=== PATIENT | male | born 1940 | race Caucasian/White ===

== ENCOUNTER 2018-10-29 00:35 | Inpatient (IN) | payer BC ==
[~2018-10-29] VITALS: Ht 167.6 cm; Wt 78.2 kg
[2018-10-29] MEDS ORDERED: SOD CHLORIDE 0.9% 1,000 ML IV STA (01:32)
--- NOTE | 2018-10-29 02:44 | ERD ---
ER Documentation Chief Complaint Chief Complaint CLAUDIA RA102 from home,bloody stool X3 days,gen weakness,dizziness,HAILE HPI 78-year-old man brought in by EMS from home for dizziness and near syncopal episode tonight while walking up the stairs. He states he has had mild dizziness times 3 days and developed melena as well as bright red blood per rectum. Patient has a history of mild gastritis and in the past has had bleeding hemorrhoids. He denies fevers or chills, no chest pain or shortness of breath, no loss of consciousness. Patient was transported here by EMS without further complications. ROS All systems reviewed and are negative except as per history of present illness. Allergies Allergies: Coded Allergies: No Known Allergy (Unverified , 10/29/18) PMhx/Soc Hemorrhoids, hypothyroidism Hx Alcohol Use: No Hx Substance Use: No Hx Tobacco Use: No Smoking Status: Never smoker FmHx Family History: No diabetes Physical Exam Vitals Vital Signs Date Temp Pulse Resp B/P (MAP) Pulse Ox O2 O2 Flow FiO2 Time Delivery Rate 10/29/18 84 18 106/59 97 Room Air 01:30 (75) 10/29/18 128/61 01:09 (83) 10/29/18 98.0 70 18 114/55 97 00:40 (74) Physical Exam GENERAL: Well-developed, well-nourished, appears dehydrated, afebrile HEENT: Dry mucous membranes, pink conjunctiva, no cervical spine tenderness or step-off deformities, no goiter, no jaundice or icterus, extraocular movements intact without pain. No submandibular induration, and no pharyngeal erythema NEURO: Alert and oriented 3, cranial nerves II through XII intact bilaterally, pupils equal round reactive to light, no focal deficits or facial asymmetry, sensation intact distally Strength 5/5 in upper and lower extremities bilaterally CARDIAC: Regular rate and rhythm, no murmurs rubs or gallops LUNGS: Clear bilaterally no wheezing crackles or stridor ABDOMEN: Soft nontender, no guarding, no rigidity, no rebound, no psoas sign no obturator sign. Normoactive bowel sounds SKIN: Warm and dry to touch, no abrasions, contusions, or hematomas, no lacerations, no ecchymosis, no target lesions, and without ulcers EXTREMITIES: No clubbing cyanosis or edema, calves are bilaterally symmetrical, no Homans sign, no popliteal cord sign. Distal pulses equal and bilateral PSYCH: Normal affect without agitation or irritability Result Diagram: 10/29/1811410/29/18114 Results 24 hrs Laboratory Tests Test 10/29/18 01:15 10/29/18 02:45 White Blood Count 10.5 10^3/ul Red Blood Count 3.56 10^6/ul Hemoglobin 11.1 g/dl Hematocrit 33.5 % Mean Corpuscular Volume 94.1 fl Mean Corpuscular Hemoglobin 31.2 pg Mean Corpuscular Hemoglobin Concent 33.1 g/dl Red Cell Distribution Width 12.3 % Platelet Count 189 10^3/UL Mean Platelet Volume 10.6 fl Immature Granulocytes % 0.800 % Neutrophils % 65.8 % Lymphocytes % 19.4 % Monocytes % 12.0 % Eosinophils % 1.7 % Basophils % 0.3 % Nucleated Red Blood Cells % 0.0 /100WBC Immature Granulocytes # 0.080 10^3/ul Neutrophils # 6.9 10^3/ul Lymphocytes # 2.0 10^3/ul Monocytes # 1.3 10^3/ul Eosinophils # 0.2 10^3/ul Basophils # 0.0 10^3/ul Nucleated Red Blood Cells # 0.0 10^3/ul Prothrombin Time 13.1 Sec Prothrombin Time Ratio 1.0 INR International Normalized Ratio 0.98 Activated Partial Thromboplast Time 24.0 Sec Sodium Level 136 mmol/L Potassium Level 4.3 mmol/L Chloride Level 102 mmol/L Carbon Dioxide Level 28 mmol/L Anion Gap 6 Blood Urea Nitrogen 44 mg/dl Creatinine 0.97 mg/dl Est Glomerular Filtrat Rate mL/min mL/min Glucose Level 161 mg/dl Calcium Level 9.9 mg/dl Total Bilirubin 0.1 mg/dl Direct Bilirubin 0.00 mg/dl Indirect Bilirubin 0.1 mg/dl Aspartate Amino Transf (AST/SGOT) 23 IU/L Alanine Aminotransferase (ALT/SGPT) 23 IU/L Alkaline Phosphatase 60 IU/L Troponin I < 0.012 ng/ml Total Protein 5.5 g/dl Albumin 3.3 g/dl Globulin 2.20 g/dl Albumin/Globulin Ratio 1.50 Lipase 55 U/L Urine Color YELLOW Urine Clarity CLEAR Urine pH 5.0 Urine Specific [place] 1.023 Urine Ketones NEGATIVE mg/dL Urine Nitrite NEGATIVE mg/dL Urine Bilirubin NEGATIVE mg/dL Urine Urobilinogen NEGATIVE mg/dL Urine Leukocyte Esterase NEGATIVE Adria/ul Urine Hemoglobin NEGATIVE mg/dL Urine Glucose NEGATIVE mg/dL Urine Total Protein NEGATIVE mg/dl Current Medications Medications Dose Sig/Bridgette Start Time Status Last (Trade) Ordered Route PRN Stop Time Admin Dose Reason Admin Sodium 1,000 ml @ Q1H STAT 10/29/18 DC 10/29/18 Chloride 1,000 mls/hr IV 01:32 01:43 10/29/18 02:31 40 mg ONCE ONCE 10/29/18 DC 10/29/18 Pantoprazole IV 03:00 03:24 (Protonix 10/29/18 03:01 Iv) Procedures/MDM IV line was established patient was placed on security monitor rhythm strip revealed a sinus rhythm at about 80 bpm with upright P and T waves. Patient was afebrile EKG performed, read by me revealed a normal sinus rhythm 83 bpm, normal axis, narrow QRS complex, no concerning ST elevations or depressions noted. CT scan of the abdomen and pelvis was performed, IMPRESSION: 1. Punctate nonobstructing right upper pole renal calculus. 2. Right lower pole renal cortical cyst. 3. Diffuse flaccidity of the ventral abdominal wall without evidence for hernia. 4. Extensive colonic diverticulosis. 5. No CT evidence for appendicitis. 6. Mildly enlarged heterogeneous prostate. 7. Vascular calcifications. CBC reveals mild anemia with a hemoglobin of 11, electrolytes revealed dehydration with a BUN/creatinine 44/1, liver function tests were normal, troponin was negative. Urinalysis was negative for infection. I administered 1 L normal saline IV for dehydration and Protonix 40 mg IV x1 for possible upper gastrointestinal bleeding. Patient will be admitted to [facility] for continued medical management and GI consultation for possible upper endoscopy. Departure Diagnosis: Primary Impression: Melena Additional Impressions: Upper GI bleed Dizziness Dehydration Condition: DORY Orantes MD Oct 29, 2018 02:44
[2018-10-29] MEDS ORDERED: PANTOPRAZOLE 40 MG INJ IV ONE (03:00)
--- NOTE | 2018-10-29 04:38 | HP ---
Date/Time of Note Date/Time of Note DATE: 10/29/18 TIME: 04:38 Assessment/Plan VTE Prophylaxis SCD applied (from Nsg): Yes Pharmacological prophylaxis: NA/contraindicated Pharm contraindication: bleeding Lines/Catheters IV Catheter Type (from Nrsg): Saline Lock Assessment/Plan Hospital Course This is a 78-year-old male being admitted to the [facility] floor for: #1 acute GI bleed: Suspect upper GI bleed given the fact the patient had melanotic stools. Clear liquid diet at the current time, CBC every 6 hours. Protonix IV, consult GI for endoscopy/colonoscopy. Given patient's cardiac his tory goal is to maintain hemoglobin above 8. #2 coronary artery disease: History of cardiac stent that required restenting after possible thrombosis we will need to hold aspirin at the current time, will need to confirm patient's home medications and initiate as indicated #3 hypertension: We will need to confirm patient's home medications and initiate as indicated #4 hypothyroidism: We will check a TSH, again we will need to confirm patient's levothyroxine dose #5 hyperlipidemia: Check lipid panel, resume statin as indicated #6 obstructive sleep apnea: Patient states that he has a CPAP setting of 7 he will try to bring his own CPAP machine from home otherwise we will use hours #7 DVT GI prophylaxis: SCDs, no GI prophylaxis indicated Further treatment strategy will be implemented as per the clinical course. Result Diagram: 10/29/1811410/29/18114 Results 24hrs Laboratory Tests Test 10/29/18 01:15 10/29/18 02:45 White Blood Count 10.5 Red Blood Count 3.56 L Hemoglobin 11.1 L Hematocrit 33.5 L Mean Corpuscular Volume 94.1 Mean Corpuscular Hemoglobin 31.2 Mean Corpuscular Hemoglobin Concent 33.1 Red Cell Distribution Width 12.3 Platelet Count 189 Mean Platelet Volume 10.6 H Immature Granulocytes % 0.800 H Neutrophils % 65.8 Lymphocytes % 19.4 Monocytes % 12.0 H Eosinophils % 1.7 Basophils % 0.3 Nucleated Red Blood Cells % 0.0 Immature Granulocytes # 0.080 H Neutrophils # 6.9 Lymphocytes # 2.0 Monocytes # 1.3 H Eosinophils # 0.2 Basophils # 0.0 Nucleated Red Blood Cells # 0.0 Prothrombin Time 13.1 Prothrombin Time Ratio 1.0 INR International Normalized Ratio 0.98 Activated Partial Thromboplast Time 24.0 Sodium Level 136 Potassium Level 4.3 Chloride Level 102 Carbon Dioxide Level 28 Anion Gap 6 Blood Urea Nitrogen 44 H Creatinine 0.97 Est Glomerular Filtrat Rate mL/min Glucose Level 161 Calcium Level 9.9 Total Bilirubin 0.1 L Direct Bilirubin 0.00 Indirect Bilirubin 0.1 Aspartate Amino Transf (AST/SGOT) 23 Alanine Aminotransferase (ALT/SGPT) 23 Alkaline Phosphatase 60 Troponin I < 0.012 Total Protein 5.5 L Albumin 3.3 Globulin 2.20 Albumin/Globulin Ratio 1.50 Lipase 55 Urine Color YELLOW Urine Clarity CLEAR Urine pH 5.0 Urine Specific [place] 1.023 Urine Ketones NEGATIVE Urine Nitrite NEGATIVE Urine Bilirubin NEGATIVE Urine Urobilinogen NEGATIVE Urine Leukocyte Esterase NEGATIVE Urine Hemoglobin NEGATIVE Urine Glucose NEGATIVE Urine Total Protein NEGATIVE HPI/ROS Admit Date/Time Admit Date/Time Hx of Present Illness Chief complaint: Dizziness, dark stools This is a 78-year-old man brought in by EMS from home for dizziness, fatigue, and near syncopal episode tonight while walking up the stairs. He states he has had mild dizziness for 5 days and developed dark stools over the last 3 days. He reports that he had 2 BMs per day that were dark over the last 3 days. Patient apparently has a history of gastritis in the past and also a polyp that was found on colonoscopy in 2016. He denies fevers or chills, no chest pain or shortness of breath, no loss of consciousness. Patient was transported here by EMS without further complications. Allergies: NKDA Medications: See Nov Const: As per HPI Eyes : No pain discharge or redness or change in visual acuity ENT: No pain, sore throat, congestion, congestion, dysphagia or discharge Respiratory: No shortness of breath, cough, sputum, wheezing, or pleuritic pain Cardiovascular: No chest pain, palpitation, PND, or edema GI : As per HPI Genitourinary: No dysuria, hematuria, flank pain , discharge or CVA tenderness Musculoskeletal: No joint pain, back pain, neck pain, restricted range of motion in neck or joints Skin: No rash, bruising or hives Neuro: As per HPI Endocrine: No polyuria, polydipsia, temperature intolerance Psych: No hallucination, depression, anxiety or suicidal ideation PMH/Family/Social Past Medical History Coronary artery disease, hypertension, hyperlipidemia, hypothyroid, obstructive sleep apnea with CPAP setting of 7, history of possible hemorrhoids, polyp Coded Allergies: No Known Allergy (Unverified , 10/29/18) Past Surgical History Cardiac stenting x2 (restenting), colonoscopy in 2016 colon - polyp Family History Significant Family History: no pertinent family hx Social History 1 Glass of wine drinker daily Smoking Status: Never smoker Drug Use: none Exam/Review of Systems Vital Signs Vitals Vital Signs Date Temp Pulse Resp B/P (MAP) Pulse Ox O2 O2 Flow FiO2 Time Delivery Rate 10/29/18 84 18 106/59 97 Room Air 01:30 (75) 10/29/18 98.0 00:40 Exam Exam General: Patient is a pleasant male currently lying in bed in no acute distress HEENT: Atraumatic, normocephalic. The pupils are equal, round and reactive. Extraocular motor are intact Neck: Supple with full range of motion. No rigidity or meningismus Chest: Nontender Lungs: Clear to auscultation bilaterally no crackles rales or wheezing Heart: Normal S1-S2, Regular rhythm and rate. No murmur, S3, or S4 Abdomen: Soft , nontender, nondistended , bowel sounds are present. No guarding no rebound tenderness , No masses or organomegaly. No costovertebral temporal an gle mass Extremities: Normal to inspection, no edema no cyanosis Neurologic: Normal mental status, speech normal, cranial nerves II through XII are intact, motor and sensory are intact, gait not assessed secondary to weakness Additional Comments EKG normal sinus rhythm 83 bpm, normal axis, narrow QRS complex, no concerning ST elevations or depressions noted. PROCEDURE: CT ABDOMEN/PELVIS WITHOUT CONTRAST CLINICAL INDICATION: 78-year-old male with abdominal pain. TECHNIQUE: The study was performed utilizing a [employer] VCT 64-slice CT scanner. Direct axial sections were obtained through the abdomen and pelvis without the use of intravenous contrast material. Sagittal and coronal reformations were obtained. One or more of the following dose reduction techniques were utilized: automated exposure control, adjustment of the mA and/or kV according to patient's size, use of iterative reconstruction technique. DICOM images are available. The images were reviewed on a PACS workstation. CTD/vol = 10.91 mGy; Total Exam DLP = 617.16 mGy.cm. COMPARISON: None. FINDINGS: There is minimal bilateral basilar subsegmental atelectasis and/or scarring. There is trace dependent pericardial effusion. There is no evidence for significant pleural effusion. The liver has a normal size and contour without focal areas of abnormal density. No intrahepatic nor extrahepatic biliary ductal dilatation is seen. The gallbladder demonstrates no wall thickening nor pericholecystic fluid. No biliary stones are evident. The pancreas is without areas of abnormal attenuation. The spleen is identified and has a normal size without abnormal density. The adrenal glands are unremarkable. There is a punctate nonobstructing right upper pole renal calculus. There is a right lower pole renal cortical cyst measuring approximately 2.1 x 1.8 x 1.9 cm. The left ki dney is without abnormal density, calculi or obstruction.. The urinary bladder contains urine. There is diffuse flaccidity of the ventral abdominal wall without evidence for kate hernia. There are extensive diverticula identified throughout the colon without surrounding inflammatory changes. The appendix is visualized and is without abnormal thickening or surrounding inflammatory reaction. The prostate is mildly enlarged and heterogeneous measuring approximately 4.4 x 4.3 x 4.9 cm with central calcifications. There is no significant free fluid. The aortoiliac vessels are diffusely calcified but without aneurysmal dilatation. The osseous structures are intact. IMPRESSION: 1. Punctate nonobstructing right upper pole renal calculus. 2. Right lower pole renal cortical cyst. 3. Diffuse flaccidity of the ventral abdominal wall without evidence for hernia. 4. Extensive colonic diverticulosis. 5. No CT evidence for appendicitis. 6. Mildly enlarged heterogeneous prostate. 7. Vascular calcifications. .Jesse Hughes MD, Date Time Electronically viewed and signed by .Jesse Hughes MD, on 10/29/2018 02:22 .M/ CC: DORY ROCHA MD [id number] JOE LIRA Oct 29, 2018 04:38
[2018-10-29 05:00] VITALS: BP 108/55; PULSE 90; RESP 18
[2018-10-29] MEDS ORDERED: ONDANSETRON 4 MG INJ IV PRN (05:00)
[2018-10-29] MEDS ORDERED: NACL 0.9% 3 ML SYG IV SCH (05:00)
[2018-10-29] MEDS ORDERED: ACETAMINOPHEN 325 MG TAB PO PRN (05:00)
[2018-10-29] MEDS ORDERED: morphine 2 MG INJ IV PRN (05:00)
[2018-10-29] MEDS: SOD CHLORIDE 0.9% 1,000 ML IV SCH ×2 (05:17→17:33)
[2018-10-29 05:29] VITALS: Ht 167.6 cm; Wt 78.2 kg
--- NOTE | 2018-10-29 05:48 | NUR ---
RECEIVED PT FROM ER,ALERT AND ORIENTED. VS STABLE. DENIES PAIN. ORIENTED TO ROOM SET UP,CALL LIGHT WITHIN REACH. SEEN BY DR. LIRA. MAY HAVE CLEAR LIQUIDS. STARTED ON IVF. NO BOWEL MOVEMENT AT THIS TIME. REQUESTED FOR COPY OF ADVANCE DIRECTIVE. AT BEDSIDE. NEEDS ATTENDED.
[2018-10-29] MEDS ORDERED: PANTOPRAZOLE 40 MG INJ IV SCH (06:00)
[2018-10-29 07:21] VITALS: BP 113/60; PULSE 80; RESP 18
[2018-10-29] MEDS ORDERED: ASPI-535 PO (09:22)
[2018-10-29] MEDS ORDERED: CAND4TAB3 PO (09:24)
[2018-10-29] MEDS ORDERED: PSYL0.4C2 PO (09:29)
[2018-10-29] MEDS ORDERED: ROSU10TA26 PO (09:31)
[2018-10-29] MEDS ORDERED: OMEG-135 PO (09:36)
[2018-10-29] MEDS ORDERED: LEVO25TA PO (10:26)
[2018-10-29] MEDS ORDERED: PEG/ELECTROLYTES 4L BTL PO ONE (14:00)
[2018-10-29 14:15] VITALS: BP 137/63; PULSE 87; RESP 18
--- NOTE | 2018-10-29 14:37 | CONS ---
DATE OF ADMISSION: 10/29/2018 DATE OF CONSULTATION: TYPE OF CONSULTATION: Gastroenterology. Dear Dr. Lira: Thank you for asking me to see Mr. Hawkins in GI consultation. HISTORY OF PRESENT ILLNESS: The patient, as you know, is a 78-year-old white gentleman has been feel ing dizzy and because of that, he came to the hospital. He was found to have anemia and he is also p ast history of melenic stool. He does takes aspirin everyday. He has coronary stents. No nausea, n o vomiting, no heartburn, no abdominal pain, no rectal bleeding. REVIEW OF SYSTEMS: Positive for coronary artery disease, hypertension, hypothyroidism, dyslipidemia, sleep apnea. MEDICATIONS PRIOR TO THE ADMISSION: Essentially as mentioned above. He has been takin. Aspirin. 2. Fish oil. 3. Levothyroxine. PHYSICAL EXAMINATION: GENERAL: The patient is a 78-year-old white gentleman who at this time is alert, is well built. VITAL SIGNS: He is afebrile. CARDIOVASCULAR: Normal heart sounds. RESPIRATORY: Normal breath sounds. ABDOMEN: Shows soft abdomen with no palpable masses, no tenderness, no distention. LABORATORY WORKUP: Potassium is 4.3. Bilirubin 0.1, AST 23, ALT 23, alkaline phosphatase is 60. Li pase is 55. TSH is 0.874. Prothrombin time 13.1. WBC count dropped to 8.5 from 11.1. DIAGNOSTIC DATA: The CAT scan of the abdomen shows evidence of severe diverticulosis and kidney cyst s and also stone in the right upper pole. Right lower pole renal cortical cyst is noted as well. En larged prostate. CLINICAL IMPRESSION: The patient is presenting with history of dizziness, probably secondary to anem ia. He has history of coronary artery disease. Anyway from the anemia standpoint, one should rule o ut the possibility of peptic ulcer disease and gastritis. He has history of colon polyps detected co lonoscopically few years ago, rule out recurrence of colon polyps, rule out colon cancer. PLAN: At this time, I recommend upper endoscopy as well as lower endoscopy. Once again, doctor, thank you for this consultation. Dictated By: GIO NEWELL/HI Conf#: [id number] DID#: [id number] CC: JOE LIRA MD;*[facility]*
--- NOTE | 2018-10-29 15:32 | PN ---
Date/Time of Note Date/Time of Note DATE: 10/29/18 TIME: 15:29 Assessment/Plan VTE Prophylaxis Risk score (from Ns)>0 risk: 4 SCD applied (from Ns): Yes Pharmacological prophylaxis: NA/contraindicated Pharm contraindication: bleeding Lines/Catheters IV C[facility]ter Type (from [facility]): Peripheral IV Assessment/Plan Hospital Course SUBJECTIVE: Denies any dizziness. OBJECTIVE: Physical Exam General: Adequately build 78 year-old male lying in bed in no apparent distress. HEENT: Normocephalic, atraumatic. Eyes: Anicteric sclerae, conjunctivae clear. ENT: Nasal septum midline, oral mucosa moist. Neck supple. Respiratory: Bilaterally clear breath sounds. No use of accessory muscles of respiration. No adventitious breath sounds. Cardiovascular: S1, S2 heard. Abdomen: Soft, nontender, and nondistended. Bowel sounds positive in all 4 quadrants. Genitourinary: Deferred. Extremities: No cyanosis, no clubbing, no edema. Peripheral pulses palpable. Neurologic: Cranial nerves II through XII grossly intact. The patient is awake, alert, and oriented. Skin: Normal skin turgor. No skin rashes. Labs & Vitals per chart ASSESSMENT & PLAN 78-year-old male with comorbidities including CAD, Status post coronary artery stenting, hypertension, hypothyroidism, hyperlipidemia, and obstructive sleep apnea, who came to the emergency room with chief complaint of dizziness as well as melena. The patient was admitted to inpatient setting for further treatment and evaluation. 1. Melena. -Probably secondary to upper gastrointestinal bleeding. -Continue PPI. -Obtain serial H&H. -Transfuse blood products as needed. -Gastroenterology following. -Hold aspirin. 2. Normocytic, normochromic anemia. -Probably anemia of acute blood loss. -Management as per #1. 3. CAD. -Continue cardiac medications except aspirin. 4. Essential hypertension. -Continue antihypertensives. 5. Dyslipidemia. -Continue antilipemics. 6. Hypothyroidism -Continue Synthroid. 7. Obstructive sleep apnea. -Continue home CPAP. 8. Fluids, electrolytes, and nutrition. -Clear liquid diet. 9. DVT prophylaxis. -Bilateral SCDs. 10. Plan. -Continue PPI. -Await upper and lower endoscopy scheduled on 10/30/2018. The patient was seen in collaboration with Dr. Reynolds. Result Diagram: 10/29/18 1111 10/29/18 0115 Results 24hrs Laboratory Tests Test 10/29/18 01:15 10/29/18 02:45 10/29/18 05:21 10/29/18 11:11 White Blood Count 10.5 9.8 7.2 # Red Blood Count 3.56 L 3.26 L 2.77 L Hemoglobin 11.1 L 10.0 L 8.5 L Hematocrit 33.5 L 30.4 L 25.9 L Mean Corpuscular 94.1 93.3 93.5 Volume Mean Corpuscular 31.2 30.7 30.7 Hemoglobin Mean Corpuscular 33.1 32.9 32.8 Hemoglobin Concent Red Cell 12.3 12.3 12.2 Distribution Width Platelet Count 189 161 135 L Mean Platelet Volume 10.6 H 10.4 9.4 Immature 0.800 H 0.700 H 0.600 H Granulocytes % Neutrophils % 65.8 79.0 H 69.2 Lymphocytes % 19.4 10.7 L 15.4 Monocytes % 12.0 H 8.9 13.7 H Eosinophils % 1.7 0.4 1.0 Basophils % 0.3 0.3 0.1 Nucleated Red Blood 0.0 0.0 0.0 Cells % Immature 0.080 H 0.070 H 0.040 H Granulocytes # Neutrophils # 6.9 7.7 H 5.0 Lymphocytes # 2.0 1.0 1.1 Monocytes # 1.3 H 0.9 1.0 H Eosinophils # 0.2 0.0 0.1 Basophils # 0.0 0.0 0.0 Nucleated Red Blood 0.0 0.0 0.0 Cells # Prothrombin Time 13.1 Prothrombin Time 1.0 Ratio INR International 0.98 Normalized Ratio Activated 24.0 Partial Thromboplast Time Sodium Level 136 Potassium Level 4.3 Chloride Level 102 Carbon Dioxide Level 28 Anion Gap 6 Blood Urea Nitrogen 44 H Creatinine 0.97 Est Glomerular Filtrat Rate mL/min Glucose Level 161 Calcium Level 9.9 Total Bilirubin 0.1 L Direct Bilirubin 0.00 Indirect Bilirubin 0.1 Aspartate Amino 23 Transf (AST/SGOT) Alanine 23 Aminotransferase (AL T/SGPT) Alkaline Phosphatase 60 Troponin I < 0.012 Total Protein 5.5 L Albumin 3.3 Globulin 2.20 Albumin/Globulin 1.50 Ratio Lipase 55 Urine Color YELLOW Urine Clarity CLEAR Urine pH 5.0 Urine Specific 1.023 [place] Urine Ketones NEGATIVE Urine Nitrite NEGATIVE Urine Bilirubin NEGATIVE Urine Urobilinogen NEGATIVE Urine Leukocyte NEGATIVE Esterase Urine Hemoglobin NEGATIVE Urine Glucose NEGATIVE Urine Total Protein NEGATIVE Hemoglobin A1c 5.9 Triglycerides Level 137 Cholesterol Level 96 L LDL Cholesterol, 42 Calculated HDL Cholesterol 27 L Cholesterol/HDL 3.5 Ratio Thyroid Stimulating 0.874 Hormone (TSH) Exam/Review of Systems Exam Vitals Vital Signs Date Temp Pulse Resp B/P (MAP) Pulse Ox O2 O2 Flow FiO2 Time Delivery Rate 10/29/18 98.4 80 18 113/60 96 Room Air 07:21 (77) Results Results 24hrs Laboratory Tests Test 10/29/18 01:15 10/29/18 02:45 10/29/18 05:21 10/29/18 11:11 White Blood Count 10.5 9.8 7.2 # Red Blood Count 3.56 L 3.26 L 2.77 L Hemoglobin 11.1 L 10.0 L 8.5 L Hematocrit 33.5 L 30.4 L 25.9 L Mean Corpuscular 94.1 93.3 93.5 Volume Mean Corpuscular 31.2 30.7 30.7 Hemoglobin Mean Corpuscular 33.1 32.9 32.8 Hemoglobin Concent Red Cell 12.3 12.3 12.2 Distribution Width Platelet Count 189 161 135 L Mean Platelet Volume 10.6 H 10.4 9.4 Immature 0.800 H 0.700 H 0.600 H Granulocytes % Neutrophils % 65.8 79.0 H 69.2 Lymphocytes % 19.4 10.7 L 15.4 Monocytes % 12.0 H 8.9 13.7 H Eosinophils % 1.7 0.4 1.0 Basophils % 0.3 0.3 0.1 Nucleated Red Blood 0.0 0.0 0.0 Cells % Immature 0.080 H 0.070 H 0.040 H Granulocytes # Neutrophils # 6.9 7.7 H 5.0 Lymphocytes # 2.0 1.0 1.1 Monocytes # 1.3 H 0.9 1.0 H Eosinophils # 0.2 0.0 0.1 Basophils # 0.0 0.0 0.0 Nucleated Red Blood 0.0 0.0 0.0 Cells # Prothrombin Time 13.1 Prothrombin Time 1.0 Ratio INR International 0.98 Normalized Ratio Activated 24.0 Partial Thromboplast Time Sodium Level 136 Potassium Level 4.3 Chloride Level 102 Carbon Dioxide Level 28 Anion Gap 6 Blood Urea Nitrogen 44 H Creatinine 0.97 Est Glomerular Filtrat Rate mL/min Glucose Level 161 Calcium Level 9.9 Total Bilirubin 0.1 L Direct Bilirubin 0.00 Indirect Bilirubin 0.1 Aspartate Amino 23 Transf (AST/SGOT) Alanine 23 Aminotransferase (AL T/SGPT) Alkaline Phosphatase 60 Troponin I < 0.012 Total Protein 5.5 L Albumin 3.3 Globulin 2.20 Albumin/Globulin 1.50 Ratio Lipase 55 Urine Color YELLOW Urine Clarity CLEAR Urine pH 5.0 Urine Specific 1.023 [place] Urine Ketones NEGATIVE Urine Nitrite NEGATIVE Urine Bilirubin NEGATIVE Urine Urobilinogen NEGATIVE Urine Leukocyte NEGATIVE Esterase Urine Hemoglobin NEGATIVE Urine Glucose NEGATIVE Urine Total Protein NEGATIVE Hemoglobin A1c 5.9 Triglycerides Level 137 Cholesterol Level 96 L LDL Cholesterol, 42 Calculated HDL Cholesterol 27 L Cholesterol/HDL 3.5 Ratio Thyroid Stimulating 0.874 Hormone (TSH) Medications Medication Current Medications Sodium Chloride 1,000 ml @ 80 mls/hr [id number] IV Last administered on 10/29/18at 05:17; Admin Dose 80 MLS/HR; Start 10/29/18 at 04:35 IV Flush (NS 3 ml) 3 ml PER PROTOCOL IV ; Start 10/29/18 at 05:00 Ondansetron HCl (Zofran Inj) 4 mg Q6H PRN IV NAUSEA/VOMITING; Start 10/29/18 at 05:00 Acetaminophen (Tylenol Tab) 650 mg Q6H PRN PO .PAIN 1-3 OR TEMP; Start 10/29/18 at 05:00 Morphine Sulfate (morphine) 2 mg Q4H PRN IV .SEVERE PAIN 7-10; Start 10/29/18 at 05:00 Pantoprazole (Protonix Iv) 40 mg BID@06,18 IV ; Start 10/29/18 at 18:00 Levothyroxine Sodium (Synthroid) 150 mcg BEFORE BREAKFAST PO ; Start 10/30/18 at 07:00 Losartan Potassium (Cozaar) 25 mg DAILY PO ; Start 10/30/18 at 09:00 Fish Oil (Fish Oil) 1 mg DAILY PO ; Start 10/30/18 at 09:00 Atorvastatin Calcium (Lipitor) 40 mg DAILY PO ; Start 10/30/18 at 09:00 GRIFFIN VIDES NP Oct 29, 2018 15:32
[2018-10-29 15:33] VITALS: BP 125/60; PULSE 89; RESP 18
[2018-10-29 15:34] VITALS: BP 114/58; PULSE 99
[2018-10-29] MEDS: PANTOPRAZOLE 40 MG INJ IV SCH (18:07)
[2018-10-29] MEDS ORDERED: SOD CHLORIDE 0.9% 250 ML IV* ONE (18:09)
--- NOTE | 2018-10-29 18:59 | NUR ---
End of shift summary: Patient in stable condition .V.S within normal limits .Patient on colon preoperation .s/p Golytely .Monitoring H&H .Next lab at 0000 .Will endorse to next shift RN to follow up on lab results .Possible Blood transfusion tonight if Hemoglobin 8 or less.Full report will be given to next shift RN .Call light within reach ,bed alarm on , at bedside
[2018-10-29 20:54] VITALS: BP 94/42; PULSE 106; RESP 18
[2018-10-30] VITALS (41 sets, daily range): BP systolic 23–151; BP diastolic 50–78; PULSE 90–105; RESP 18–27
--- NOTE | 2018-10-30 00:05 | NUR ---
STARTED BLOOD TRANSFUSION, 1 UNIT PRBC.
--- NOTE | 2018-10-30 04:45 | NUR ---
STARTED TRANSFUSION OF SECOND BAG OF PRBC. PATIENT TOLERATED FIRST BAG WELL.
[2018-10-30] MEDS: SOD CHLORIDE 0.9% 1,000 ML IV SCH (05:35)
[2018-10-30] MEDS: PANTOPRAZOLE 40 MG INJ IV SCH ×2 (06:21→18:00)
--- NOTE | 2018-10-30 06:47 | NUR ---
PATIENT STILL ON 2ND BAG OF PRBC (2 OF 2). PATIENT TOLERATING TRANSFUSION WELL. PATIENT CONTINUES TO HAVE BLOODY STOOL. CONTINUE POC. PLANNED COLONOSCOPY AND EGD FOR TODAY.
[2018-10-30] MEDS ORDERED: LEVOTHYROXINE 150 MCG TAB PO SCH (07:00)
[2018-10-30] MEDS ORDERED: FISH OIL 1,000 MG CAP PO SCH (09:00)
[2018-10-30] MEDS ORDERED: LOSARTAN 25 MG TAB PO SCH (09:00)
[2018-10-30] MEDS ORDERED: ATORVASTATIN 40 MG TAB PO SCH (09:00)
--- NOTE | 2018-10-30 14:52 | NUR ---
Received call from lab for hemoglobin 6.6. 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 MD Bella made aware, received order for 1 unit PRBC and 20mg IV Lasix after transfusion. Will carry out order
[2018-10-30] MEDS ORDERED: FUROSEMIDE 20 MG INJ IV ONE (15:00)
--- NOTE | 2018-10-30 16:45 | NUR ---
Pt off floor to GI lab via wheelchair. Pt went down with blood still running. VS sheet in chart for RN to fill out VS Q1HR, pt accompanied by family. Pt alert, oriented x4 upon transport.
--- NOTE | 2018-10-30 17:30 | PN ---
Date/Time of Note Date/Time of Note DATE: 10/30/18 TIME: 17:29 Assessment/Plan VTE [place]axis [place] [facility] [place]: 3 [place]CD [place] [facility] [place] Yes SCD contraindicated: low risk/ambulating Pharmacological prophylaxis: NA/contraindicated Pharm contraindication: bleeding Lines/Catheters IV [facility]ter Type (from [facility]): Peripheral IV Assessment/Plan Hospital Course Assessment and plan 1. Presyncope/dizziness/symptomatic GI bleed, stable, transfuse as indicated. 2. Acute GI bleed, stable, patient for endoscopy today 3. Chronic coronary disease/PCI status. Unfortunately need to hold aspirin Plavix due to #2. 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 Hypertension 5. Dyslipidemia 6. ESTEFANI Subjective: Events noted. Objective: Vital signs stable Physical exam Deferred patient in GI lab. Result Diagram: 10/30/18 1356 10/30/18 1356 Results 24hrs Laboratory Tests Test 10/29/18 22:53 10/30/18 07:30 10/30/18 10:42 10/30/18 13:56 White Blood Count 9.7 # 10.0 Red Blood Count 2.16 #L 2.26 L Hemoglobin 6.9 *L 7.3 L 6.6 *L Hematocrit 20.3 L 22.0 L 20.1 L Mean Corpuscular 94.0 88.9 Volume Mean Corpuscular 31.9 29.2 Hemoglobin Mean Corpuscular 34.0 32.8 Hemoglobin Concen t Red Cell 12.5 17.0 #H Distribution Width Platelet Count 126 L 124 L Mean Platelet 10.4 10.2 Volume Immature 0.800 H 1.500 H Granulocytes % Neutrophils % 76.3 Segmented 77 Neutrophils % (Manual) Band Neutrophils % (Manual) Lymphocytes % 9.2 L Lymphocytes % 12 L (Manual) Monocytes % 12.5 H Monocytes % 10 (Manual) Eosinophils % 0.3 Eosinophils % 0 (Manual) Basophils % 0.2 Basophils % 0.2 (Manual) Nucleated Red 0.0 0.0 Blood Cells % Immature 0.080 H 0.150 H Granulocytes # Neutrophils # 7.4 7.6 H Neutrophils # (Manual) Band Neutrophils # Lymphocytes 1.1 (Manual) Lymphocytes # 1.2 0.9 Monocytes # 0.9 1.3 H Monocytes # 0.9 (Manual) Eosinophils # 0.0 0.0 Basophils # 0.0 0.0 Basophils # 0.0 (Manual) Nucleated Red 0.0 Blood Cells # Lab Scanned BLOOD TRANSFUSIO Report N Sodium Level 136 Potassium Level 3.9 Chloride Level 106 Carbon Dioxide 28 Level Anion Gap 2 L Blood Urea 17 # Nitrogen Creatinine 0.71 Est Glomerular Filtrat Rate mL/min Glucose Level 129 Calcium Level 8.2 L Phosphorus Level 1.8 L Magnesium Level 1.7 Total Bilirubin 0.4 Direct Bilirubin 0.00 Indirect 0.4 Bilirubin Aspartate Amino 19 Transf (AST/SGOT) Alanine 27 Aminotransferase (ALT/SGPT) Alkaline 31 L Phosphatase Total Protein 4.1 #L Albumin 2.3 #L Globulin 1.80 Albumin/Globulin 1.27 Ratio Exam/Review of Systems Exam Vitals Vital Signs Date Temp Pulse Resp B/P (MAP) Pulse Ox O2 O2 Flow FiO2 Time Delivery Rate 10/30/18 98.2 94 20 119/59 97 14:14 (79) 10/29/18 Room Air 14:15 Intake and Output 10/29/18 10/29/18 10/30/18 1414:59 22:59 06:59 IntakeIntake Total 1200 ml 4750 ml 800 ml OutputOutput Total 400 ml BalanceBalance 1200 ml 4350 ml 800 ml Results Results 24hrs Laboratory Tests Test 10/29/18 22:53 10/30/18 07:30 10/30/18 10:42 10/30/18 13:56 White Blood Count 9.7 # 10.0 Red Blood Count 2.16 #L 2.26 L Hemoglobin 6.9 *L 7.3 L 6.6 *L Hematocrit 20.3 L 22.0 L 20.1 L Mean Corpuscular 94.0 88.9 Volume Mean Corpuscular 31.9 29.2 Hemoglobin Mean Corpuscular 34.0 32.8 Hemoglobin Concen t Red Cell 12.5 17.0 #H Distribution Width Platelet Count 126 L 124 L Mean Platelet 10.4 10.2 Volume Immature 0.800 H 1.500 H Granulocytes % Neutrophils % 76.3 Segmented 77 Neutrophils % (Manual) Band Neutrophils % (Manual) Lymphocytes % 9.2 L Lymphocytes % 12 L (Manual) Monocytes % 12.5 H Monocytes % 10 (Manual) Eosinophils % 0.3 Eosinophils % 0 (Manual) Basophils % 0.2 Basophils % 0.2 (Manual) Nucleated Red 0.0 0.0 Blood Cells % Immature 0.080 H 0.150 H Granulocytes # Neutrophils # 7.4 7.6 H Neutrophils # (Manual) Band Neutrophils # Lymphocytes 1.1 (Manual) Lymphocytes # 1.2 0.9 Monocytes # 0.9 1.3 H Monocytes # 0.9 (Manual) Eosinophils # 0.0 0.0 Basophils # 0.0 0.0 Basophils # 0.0 (Manual) Nucleated Red 0.0 Blood Cells # Lab Scanned BLOOD TRANSFUSIO Report N Sodium Level 136 Potassium Level 3.9 Chloride Level 106 Carbon Dioxide 28 Level Anion Gap 2 L Blood Urea 17 # Nitrogen Creatinine 0.71 Est Glomerular Filtrat Rate mL/min Glucose Level 129 Calcium Level 8.2 L Phosphorus Level 1.8 L Magnesium Level 1.7 Total Bilirubin 0.4 Direct Bilirubin 0.00 Indirect 0.4 Bilirubin Aspartate Amino 19 Transf (AST/SGOT) Alanine 27 Aminotransferase (ALT/SGPT) Alkaline 31 L Phosphatase Total Protein 4.1 #L Albumin 2.3 #L Globulin 1.80 Albumin/Globulin 1.27 Ratio Medications Medication Current Medications Sodium Chloride 1,000 ml @ 80 mls/hr [id number] IV Last administered on 10/29/18at 17:33; Admin Dose 80 MLS/HR; Start 10/29/18 at 04:35 IV Flush (NS 3 ml) 3 ml PER PROTOCOL IV ; Start 10/29/18 at 05:00 Ondansetron HCl (Zofran Inj) 4 mg Q6H PRN IV NAUSEA/VOMITING; Start 10/29/18 at 05:00 Acetaminophen (Tylenol Tab) 650 mg Q6H PRN PO .PAIN 1-3 OR TEMP; Start 10/29/18 at 05:00 Morphine Sulfate (morphine) 2 mg Q4H PRN IV .SEVERE PAIN 7-10; Start 10/29/18 at 05:00 Pantoprazole (Protonix Iv) 40 mg BID@06,18 IV Last administered on 10/30/18at 06:21; Admin Dose 40 MG; Start 10/29/18 at 18:00 Levothyroxine Sodium (Synthroid) 150 mcg BEFORE BREAKFAST PO Last administered on 10/30/18at 06:16; Admin Dose 150 MCG; Start 10/30/18 at 07:00 Losartan Potassium (Cozaar) 25 mg DAILY PO ; Start 10/30/18 at 09:00 Fish Oil (Fish Oil) 1 mg DAILY PO ; Start 10/30/18 at 09:00 Atorvastatin Calcium (Lipitor) 40 mg DAILY PO ; Start 10/30/18 at 09:00 DELL OVALLE MD Oct 30, 2018 17:30
--- NOTE | 2018-10-30 17:57 | PREAC ---
Date/Time of Note Date/Time of Note DATE: 10/30/18 TIME: 17:53 Anesthesia Eval and Record Evaluation Time Pre-Procedure Interview DATE: 10/30/18 TIME: 17:53 Age 78 Sex male NPO: 8 hrs Preoperative diagnosis GI Bleeding Planned procedure EGD, Colonoscopy Past Medical History Past Medical History: Includes Cardio: Dyslipidemia, CAD Endo: Hypothyroid Heme: Anemia Surgery & Anesthesia Issues No known issue Meds Anticoagulation: No Beta Eulogio within 24 hr: No Reason Beta Eulogio not given: Pt. not on B-Eulogio Reported Medications Levothyroxine Sodium* (Synthroid*) 25 Mcg Tablet, 0.15 MG PO BEFORE BREAKFAST, #30 TAB 10/29/18 Stanley-3 Fatty Acids/Fish Oil (Fish Oil 1,000 mg Capsule) 1 Each Capsule, 1 EACH PO DAILY, CAP 10/29/18 Rosuvastatin Calcium (Rosuvastatin Calcium) 10 Mg Tablet, 10 MG PO DAILY, TAB 10/29/18 Candesartan Cilexetil (Candesartan Cilexetil) 4 Mg Tablet, 4 MG PO DAILY, TAB 10/29/18 Aspirin Ec (Aspir 81) 81 Mg Tablet.dr, 81 MG PO DAILY, #30 TAB 10/29/18 Current Medications Sodium Chloride 1,000 ml @ 80 mls/hr [id number] IV Last administered on 10/29/18at 17:33; Admin Dose 80 MLS/HR; Start 10/29/18 at 04:35 IV Flush (NS 3 ml) 3 ml PER PROTOCOL IV ; Start 10/29/18 at 05:00 Ondansetron HCl (Zofran Inj) 4 mg Q6H PRN IV NAUSEA/VOMITING; Start 10/29/18 at 05:00 Acetaminophen (Tylenol Tab) 650 mg Q6H PRN PO .PAIN 1-3 OR TEMP; Start 10/29/18 at 05:00 Morphine Sulfate (morphine) 2 mg Q4H PRN IV .SEVERE PAIN 7-10; Start 10/29/18 at 05:00 Pantoprazole (Protonix Iv) 40 mg BID@06,18 IV Last administered on 10/30/18at 06:21; Admin Dose 40 MG; Start 10/29/18 at 18:00 Levothyroxine Sodium (Synthroid) 150 mcg BEFORE BREAKFAST PO Last administered on 10/30/18at 06:16; Admin Dose 150 MCG; Start 10/30/18 at 07:00 Losartan Potassium (Cozaar) 25 mg DAILY PO ; Start 10/30/18 at 09:00 Fish Oil (Fish Oil) 1 mg DAILY PO ; Start 10/30/18 at 09:00 Atorvastatin Calcium (Lipitor) 40 mg DAILY PO ; Start 10/30/18 at 09:00 Meds reviewed: Yes Allergies Coded Allergies: No Known Allergy (Unverified , 10/29/18) Allergies Reviewed: Yes Labs/Studies Labs Reviewed: Reviewed by anesthesiologist Result Diagram: 10/30/18 1356 10/30/18 1356 Laboratory Tests 10/30/18 13:56 test: N/A Studies: ECG (N/A), CXR (N/A) Pre-procedure Exam Last vitals Vital Signs Date Temp Pulse Resp B/P (MAP) Pulse Ox O2 O2 Flow FiO2 Time Delivery Rate 10/30/18 98.2 94 20 119/59 97 14:14 (79) 10/29/18 Room Air 14:15 Airway: Adequate mouth opening, Adequate thyromental dist Mallampati: Mallampati II Teeth: Normal Lung: Normal Heart: Normal ASA Physical Status ASA physical status: 3 Emergency: None Planned Anesthetic General/MAC: MAC Planned Pain Management Parenteral pain med Pre-operative Attestations Prior to commencing anesthesia and surgery, the patient was re-evaluated, there was verification of: *The patient's identity *The results of appropriate recent lab work and preoperative vital signs *The above evaluation not changing prior to induction *Anesthetic plan, risk benefits, alternative and complications discussed with patient/family; questions answered; patient/family understands, accepts and wishes to proceed. SONIA LUA MD Oct 30, 2018 17:57
[2018-10-30] MEDS ORDERED: PROPOFOL 60 ML ONE (18:24)
--- NOTE | 2018-10-30 18:28 | PAC ---
Date/Time of Note Date/Time of Note DATE: 10/30/18 TIME: 18:27 Post-Anesthesia Notes Post-Anesthesia Note Last documented vital signs Vital Signs Date Temp Pulse Resp B/P (MAP) Pulse Ox O2 O2 Flow FiO2 Time Delivery Rate 10/30/18 98.2 94 20 119/59 97 face mask 8 L 18:35 (79) 10/29/18 Room Air 14:15 Activity: WNL Respiratory function: WNL Cardiovascular function: WNL Mental status: Baseline Pain reasonably controlled: Yes Hydration appropriate: Yes Nausea/Vomiting absent: Yes SONIA LUA MD Oct 30, 2018 18:28
--- NOTE | 2018-10-30 18:29 | NUR ---
[facility] pt awake alert room air no c/o pain or discomfort small amount bleeding from rectumhas iv site ob rt hand x2 works properlly pt was [place] [facility] [place] song wanted to be transfer to tele family visited the pt and were notified
[2018-10-30] MEDS ORDERED: SOD CHLORIDE 0.9% 250 ML IV* ONE (19:41)
--- NOTE | 2018-10-30 20:14 | NUR ---
transfer order to tele patient in pacu, rn ready to give report for patient to go back to [id number]. [address] song, gave order to transfer pt to tele. nursing casework supervisor informed. waiting for room to be assigned. informed at bedside. upset that pt will not be going back to the same room. upset that industrial economics professor is helping pack all the belongings for transfer. informed her that pt needs a higher level of care. still upset, said " i feel like this is a nightmare". apologized for the sudden change of room assignment. informed her that pt is still in pacu. she wanted to see the pt. and she said she was not allowed to go down there. called rn assigned to pt. spoke to carolyne and informed her of wifes request to see pt. rn agreed. informed that she can see the pt and to look for carolyne. also was upset of when the gi bleeding scan will be done. told her that i will call nursing casework supervisor. nsg sup said that previous casework supervisor called already and that pacu is the one arranging that. will let know as soon as she get back to room.
--- NOTE | 2018-10-30 20:44 | NUR ---
PACU PT AWAKE ALERT ROOMM AIR NO RESP DISTRESS NO C/O PAIN HG HCTQ4 HOURS CHECK IF HG JONO THAN 7 TRANSFUSIONN [address] TRIPLETT ORDER HG HCT WAS DRAW AT 1945 HG 7.4 NEXT DRAW AT 1145 REPORT GIVEN TO DANIELLE LOPEZ PT HAS ROOM 516 NO ACTIVE BLEEDING AT THIS TIME
--- NOTE | 2018-10-30 21:10 | NUR ---
PACU PT AWAKE ALERT ROOM AIR NO ACTIVE BLEEDING NO C/O PAIN REPORT GIVEN TO JONA LOPEZ AND ENDORCED TO HIM REGARDING Q 4 HOURS HG HCT CHECK AND IF LESS THAN 7 GIVE 2 UNITS PRBC
[2018-10-31] VITALS (28 sets, daily range): BP systolic 114–135; BP diastolic 52–65; PULSE 83–98; RESP 18–25
[2018-10-31] MEDS: SOD CHLORIDE 0.9% 1,000 ML IV SCH ×3 (00:48→22:08)
[2018-10-31] MEDS ORDERED: IOHEXOL 350MG/ML 50 ML BTL ONE (07:50)
[2018-10-31] MEDS ORDERED: SOD CHLORIDE 0.9% 100 ML ONE (07:50)
[2018-10-31] MEDS ORDERED: IOHEXOL 100 ML ONE (07:50)
--- NOTE | 2018-10-31 07:51 | NUR ---
Pt AOX 4, ambulatory , V/S stable HH= 6.8, started transfusion 2 Unit tolerating, no c/o pain, had BM2x Melena , w/ fresh gross blood was observed, monitored v/s WNL tolerating well, will endorsed to oncoming shift
--- NOTE | 2018-10-31 08:19 | NUR ---
Procedure Ordered: CTA ABD PELVIS ANGIOGRAPHY Reason for Exam Today: GI BLEED Previous Exams: Allergies: NKA Current Medications Taken: Glucophage ( ) Metformin ( ) Previous reaction to contrast media: Yes ( ) No ( ) : Yes ( ) No (X ) Asthma: Yes ( ) No (X ) Diabetes: Yes ( ) No X( ) Myeloma: Yes ( ) No (X ) Heart Disease: Yes (X ) No ( ) Cardiac Disease: Yes (X ) No ( ) Kidney Disease: Yes ( ) No ( X) Vascular Disease: Yes (X ) No ( X) Patient Teaching done: Yes ( ) No ( ) Denitrator Operator Used: Yes ( ) No ( ) Name of Denitrator Operator: Language Used: As part of the test requested by your doctor, contrast media may be injected into your vein while the x-rays are being taken. Occasionally, reactions from IV contrast may occur. The physician and staff of this hospital are trained to treat these reactions. Select the type of Contrast that will be given to patient: Isovue 300 ( ) Isovue 370 ( ) Visipaque ( ) Cystografin ( ) Gastrographin ( ) Redi-cat ( ) Volumen ( ) Amount of contrast to be given: [id number]: 125CC IV IV ( ) PO ( ) Date given: 10.31.18 Lab Values: BUN: 17 Creatinine: 0.71 Reason why contrast cannot be given: Location of patient pre-procedure: 502A Location of patient post procedure: 502A
--- NOTE | 2018-10-31 10:00 | NUR ---
Pt completed 2nd Unit of ordered blood from previous shift. VSS, AOOx4, no complaints of pain or discomfort. Will continue to monitor closely
[2018-10-31] MEDS: PANTOPRAZOLE 40 MG INJ IV SCH ×2 (10:08→18:00)
--- NOTE | 2018-10-31 10:49 | CONS ---
Assessment/Plan Assessment/Plan Hospital Course (Demo Recall) 1. Melena with concern for GI bleed: Status post colonoscopy and endoscopy> pending report -CT angiogram pending -PPI 2. Normocytic normochromic anemia: -Monitor and transfuse as needed 3. CAD with cardiac stent history -Cardiac optimization 4. Hypertension and hyperlipidemia history -Med management -Encourage weight loss 5. Hypothyroidism -Continue med management Thank you. Patient seen and examined in collaboration with Dr. Clark Khan. Consultation Date/Type/Reason Admit Date/Time Date of Consultation: Oct 31, 2018 Type of Consult Surgical Reason for Consultation GI bleed Requesting Provider: DELL OVALLE MD Date/Time of Note DATE: 10/31/18 TIME: 10:38 Hx of Present Illness Abdias Hawkins is a 78-year-old man who presented with complaints of dizziness, fatigue and near syncopal episode while walking up a staircase. Reportedly, he has had mild dizziness for approximately 5 days as well as dark stools. Laboratory findings remarkable for normocytic normochromic anemia. He is currently being worked up for GI bleed. He denies fevers, chills, congested cough, chest pain, palpitations, nausea, vomiting, dysuria, hematuria, hematemesis, hematochezia, skin changes. General surgery was asked to evaluate. 12 point review of systems was performed and is negative except for as stated in HPI. Past Medical History Gastritis Duodenitis Diverticulosis CAD Hypertension Hyperlipidemia Hypothyroidism Sleep apnea Hemorrhoids Home Meds Reported Medications Levothyroxine Sodium* (Synthroid*) 25 Mcg Tablet, 0.15 MG PO BEFORE BREAKFAST, #30 TAB 10/29/18 [place]-3 Fatty Acids/Fish Oil (Fish Oil 1,000 mg Capsule) 1 Each Capsule, 1 EACH PO DAILY, CAP 10/29/18 Rosuvastatin Calcium (Rosuvastatin Calcium) 10 Mg Tablet, 10 MG PO DAILY, TAB 10/29/18 Candesartan Cilexetil (Candesartan Cilexetil) 4 Mg Tablet, 4 MG PO DAILY, TAB 10/29/18 Aspirin Ec (Aspir 81) 81 Mg Tablet.dr, 81 MG PO DAILY, #30 TAB 10/29/18 Medications Current Medications Sodium Chloride 1,000 ml @ 80 mls/hr [id number] IV Last administered on 10/31/18at 06:35; Admin Dose 80 MLS/HR; Start 10/29/18 at 04:35 IV Flush (NS 3 ml) 3 ml PER PROTOCOL IV ; Start 10/29/18 at 05:00 Ondansetron HCl (Zofran Inj) 4 mg Q6H PRN IV NAUSEA/VOMITING; Start 10/29/18 at 05:00 Acetaminophen (Tylenol Tab) 650 mg Q6H PRN PO .PAIN 1-3 OR TEMP; Start 10/29/18 at 05:00 Morphine Sulfate (morphine) 2 mg Q4H PRN IV .SEVERE PAIN 7-10; Start 10/29/18 at 05:00 Pantoprazole (Protonix Iv) 40 mg BID@06,18 IV Last administered on 10/31/18at 10:08; Admin Dose 40 MG; Start 10/29/18 at 18:00 Allergies: Coded Allergies: No Known Allergy (Unverified , 10/29/18) Past Surgical History Capsule endoscopy Endoscopy/colonoscopy Hemorrhoidectomy Cardiac stenting x2 Social History Smoking Status: Never smoker Drug Use: none Exam/Review of Systems Exam Vitals Vital Signs Date Temp Pulse Resp B/P (MAP) Pulse Ox O2 O2 Flow FiO2 Time Delivery Rate 10/31/18 88 08:00 10/31/18 98.2 20 115/58 96 Room Air 07:06 (77) Intake and Output 10/30/18 10/30/18 10/31/18 1515:00 23:00 07:00 IntakeIntake Total 350 ml BalanceBalance 350 ml Constitutional: alert, oriented, well developed Psych: nl mood/affect; No anxiety Head: normocephalic, atraumatic Eyes: nl conjunctiva, EOMI, nl lids, nl sclera ENMT: nl external ears & nose, nl lips & teeth, nl nasal mucosa & septum, mucosa pink and moist Neck: supple, non-tender Respiratory: normal air movement; No congested cough, No labored breathing Cardiovascular: regular rate and rhythm Gastrointestinal: soft, non-tender, distended (Moderate) Musculoskeletal: nl extremities to inspection Extremities: normal pulses Neurological: nl mental status, nl speech, nl strength Skin: nl turgor; No rash or lesions Results Result Diagram: 10/31/18 0947 10/30/18 1356 Results 24hrs Laboratory Tests Test 10/30/18 10:42 2/11/19 13:56 10/30/18 19:49 10/31/18 00:51 Hemoglobin 7.3 L 6.6 *L 7.4 L 6.8 *L Hematocrit 22.0 L 20.1 L 22.5 L 20.5 L White Blood Count 10.0 Red Blood Count 2.26 L Mean Corpuscular 88.9 Volume Mean Corpuscular 29.2 Hemoglobin Mean Corpuscular 32.8 Hemoglobin Concent Red Cell 17.0 #H Distribution Width Platelet Count 124 L Mean Platelet Volume 10.2 Immature 1.500 H Granulocytes % Neutrophils % 76.3 Lymphocytes % 9.2 L Monocytes % 12.5 H Eosinophils % 0.3 Basophils % 0.2 Nucleated Red Blood 0.0 Cells % Immature 0.150 H Granulocytes # Neutrophils # 7.6 H Lymphocytes # 0.9 Monocytes # 1.3 H Eosinophils # 0.0 Basophils # 0.0 Nucleated Red Blood 0.0 Cells # Sodium Level 136 Potassium Level 3.9 Chloride Level 106 Carbon Dioxide Level 28 Anion Gap 2 L Blood Urea Nitrogen 17 # Creatinine 0.71 Est Glomerular Filtrat Rate mL/min Glucose Level 129 Calcium Level 8.2 L Phosphorus Level 1.8 L Magnesium Level 1.7 Total Bilirubin 0.4 Direct Bilirubin 0.00 Indirect Bilirubin 0.4 Aspartate Amino 19 Transf (AST/SGOT) Alanine 27 Aminotransferase (AL T/SGPT) Alkaline Phosphatase 31 L Total Protein 4.1 #L Albumin 2.3 #L Globulin 1.80 Albumin/Globulin 1.27 Ratio Test 10/31/18 09:47 White Blood Count 12.8 #H Red Blood Count 3.14 #L Hemoglobin 9.2 #L Hematocrit 28.0 #L Mean Corpuscular 89.2 Volume Mean Corpuscular 29.3 Hemoglobin Mean Corpuscular 32.9 Hemoglobin Concent Red Cell 15.3 H Distribution Width Platelet Count 113 L Mean Platelet Volume 10.2 Immature 3.800 H Granulocytes % Neutrophils % 69.7 Lymphocytes % 9.8 L Monocytes % 14.5 H Eosinophils % 1.7 Basophils % 0.5 Nucleated Red Blood 0.5 H Cells % Immature 0.490 H Granulocytes # Neutrophils # 8.9 H Lymphocytes # 1.3 Monocytes # 1.9 H Eosinophils # 0.2 Basophils # 0.1 Nucleated Red Blood 0.1 H Cells # Medications Medication Current Medications Sodium Chloride 1,000 ml @ 80 mls/hr [id number] IV Last administered on 10/31/18at 06:35; Admin Dose 80 MLS/HR; Start 10/29/18 at 04:35 IV Flush (NS 3 ml) 3 ml PER PROTOCOL IV ; Start 10/29/18 at 05:00 Ondansetron HCl (Zofran Inj) 4 mg Q6H PRN IV NAUSEA/VOMITING; Start 10/29/18 at 05:00 Acetaminophen (Tylenol Tab) 650 mg Q6H PRN PO .PAIN 1-3 OR TEMP; Start 10/29/18 at 05:00 Morphine Sulfate (morphine) 2 mg Q4H PRN IV .SEVERE PAIN 7-10; Start 10/29/18 at 05:00 Pantoprazole (Protonix Iv) 40 mg BID@06,18 IV Last administered on 10/31/18at 10:08; Admin Dose 40 MG; Start 10/29/18 at 18:00 CHAVO GONZALEZ NP Oct 31, 2018 10:49
--- NOTE | 2018-10-31 14:00 | NUR ---
Pt had kate dark red blood in stool. messaged and awaiting call back. H&H and VS stable. Will continue to monitor closely. Addendum: 10/31/18 at 1810 by JEANNE MCGRATH RN Dr. Bella and Cornelia both arrived on floor before getting a call back, informed of output.
--- NOTE | 2018-10-31 14:22 | PN ---
Date/Time of Note Date/Time of Note DATE: 10/31/18 TIME: 14:19 Assessment/Plan VTE Prophylaxis Risk score (from [facility] [place])>0 risk: 5 SCD applied (from [facility]): Yes SCD contraindicated: low risk/ambulating Pharmacological prophylaxis: NA/contraindicated Pharm contraindication: bleeding Lines/Catheters IV Catheter Type (from [facility]): Peripheral IV Assessment/Plan Hospital Course Assessment and plan 1. Presyncope/dizziness/symptomatic GI bleed, mod stable, transfuse if hb>8.0. 2. Acute GI bleed, mod stable, sp egd/ colon; sp gi scan[rt lat abd], ct angio -ve though 3. Chr CAD/PCI status. Unfortunately need to hold aspirin/ plavix due to #2. 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 Hypertension 5. Dyslipidemia 6. ESTEFANI S: 10/30: Events noted. 10/31: Hb better, but still having melena and hematochezia. Received 2 units last night, and a total of 5 during his stay so far O: Vital signs stable PE No pallor adenopathy Regular no murmur rub gallop Clear Bs+ nt nd no RRG No edema Result Diagram: 10/31/18 0947 10/31/18 0947 Results 24hrs Laboratory Tests Test 10/30/18 19:49 10/31/18 00:51 10/31/18 09:47 Hemoglobin 7.4 L 6.8 *L 9.2 #L Hematocrit 22.5 L 20.5 L 28.0 #L White Blood Count 12.8 #H Red Blood Count 3.14 #L Mean Corpuscular Volume 89.2 Mean Corpuscular Hemoglobin 29.3 Mean Corpuscular Hemoglobin Concent 32.9 Red Cell Distribution Width 15.3 H Platelet Count 113 L Mean Platelet Volume 10.2 Immature Granulocytes % 3.800 H Neutrophils % 69.7 Lymphocytes % 9.8 L Monocytes % 14.5 H Eosinophils % 1.7 Basophils % 0.5 Nucleated Red Blood Cells % 0.5 H Immature Granulocytes # 0.490 H Neutrophils # 8.9 H Lymphocytes # 1.3 Monocytes # 1.9 H Eosinophils # 0.2 Basophils # 0.1 Nucleated Red Blood Cells # 0.1 H Sodium Level 137 Potassium Level 3.7 Chloride Level 107 Carbon Dioxide Level 27 Anion Gap 3 L Blood Urea Nitrogen 18 Creatinine 0.70 Est Glomerular Filtrat Rate mL/min Glucose Level 113 Calcium Level 8.3 L Phosphorus Level 1.5 L Magnesium Level 1.7 Total Bilirubin 0.4 Direct Bilirubin 0.00 Indirect Bilirubin 0.4 Aspartate Amino Transf (AST/SGOT) 21 Alanine Aminotransferase (ALT/SGPT) 29 Alkaline Phosphatase 34 L Total Protein 4.2 L Albumin 2.4 L Globulin 1.80 Albumin/Globulin Ratio 1.33 Exam/Review of Systems Exam Vitals Vital Signs Date Temp Pulse Resp B/P (MAP) Pulse Ox O2 O2 Flow FiO2 Time Delivery Rate 10/31/18 94 12:00 10/31/18 98.5 20 135/65 95 Room Air 11:00 (88) Intake and Output 10/30/18 10/30/18 10/31/18 1414:59 22:59 06:59 IntakeIntake Total 350 ml BalanceBalance 350 ml Results Results 24hrs Laboratory Tests Test 10/30/18 19:49 10/31/18 00:51 10/31/18 09:47 Hemoglobin 7.4 L 6.8 *L 9.2 #L Hematocrit 22.5 L 20.5 L 28.0 #L White Blood Count 12.8 #H Red Blood Count 3.14 #L Mean Corpuscular Volume 89.2 Mean Corpuscular Hemoglobin 29.3 Mean Corpuscular Hemoglobin Concent 32.9 Red Cell Distribution Width 15.3 H Platelet Count 113 L Mean Platelet Volume 10.2 Immature Granulocytes % 3.800 H Neutrophils % 69.7 Lymphocytes % 9.8 L Monocytes % 14.5 H Eosinophils % 1.7 Basophils % 0.5 Nucleated Red Blood Cells % 0.5 H Immature Granulocytes # 0.490 H Neutrophils # 8.9 H Lymphocytes # 1.3 Monocytes # 1.9 H Eosinophils # 0.2 Basophils # 0.1 Nucleated Red Blood Cells # 0.1 H Sodium Level 137 Potassium Level 3.7 Chloride Level 107 Carbon Dioxide Level 27 Anion Gap 3 L Blood Urea Nitrogen 18 Creatinine 0.70 Est Glomerular Filtrat Rate mL/min Glucose Level 113 Calcium Level 8.3 L Phosphorus Level 1.5 L Magnesium Level 1.7 Total Bilirubin 0.4 Direct Bilirubin 0.00 Indirect Bilirubin 0.4 Aspartate Amino Transf (AST/SGOT) 21 Alanine Aminotransferase (ALT/SGPT) 29 Alkaline Phosphatase 34 L Total Protein 4.2 L Albumin 2.4 L Globulin 1.80 Albumin/Globulin Ratio 1.33 Medications Medication Current Medications Sodium Chloride 1,000 ml @ 80 mls/hr [id number] IV Last administered on 10/31/18at 06:35; Admin Dose 80 MLS/HR; Start 10/29/18 at 04:35 IV Flush (NS 3 ml) 3 ml PER PROTOCOL IV ; Start 10/29/18 at 05:00 Ondansetron HCl (Zofran Inj) 4 mg Q6H PRN IV NAUSEA/VOMITING; Start 10/29/18 at 05:00 Acetaminophen (Tylenol Tab) 650 mg Q6H PRN PO .PAIN 1-3 OR TEMP; Start 10/29/18 at 05:00 Morphine Sulfate (morphine) 2 mg Q4H PRN IV .SEVERE PAIN 7-10; Start 10/29/18 at 05:00 Pantoprazole (Protonix Iv) 40 mg BID@06,18 IV Last administered on 10/31/18at 10:08; Admin Dose 40 MG; Start 10/29/18 at 18:00 DELL OVALLE MD Oct 31, 2018 14:22
--- NOTE | 2018-10-31 14:40 | NUR ---
[facility] hotline called to notify them of need for IR MD capable of performing mesenteric angiography. Callback phone number left. Will await phone call.
--- NOTE | 2018-10-31 15:41 | NUR ---
F/U phone call made to [facility] after 1 hour. [facility] clutch operator informed nurse that Dr. Shelley would be available and that he was to call us for scheduling. Will follow-up with Dr. Shelley.
--- NOTE | 2018-10-31 15:45 | NUR ---
F/U Spoke with Dr. Shelley who stated he was not in fact available and that he had not agreed to do the procedure but had rather received a text to call a DrAlexei. He graciously pointed me in the right direction and told me to contact the education department registrar physician Dr. Rolle. To go through the proper channels, I called [facility] again and asked for them to contact Dr. Rolle. Call back number again provided.
--- NOTE | 2018-10-31 16:30 | NUR ---
F/U Dr. Shelley and Dr. Rolle both called to inform that the case was proceeding with Dr. Shelley as the interventionalist. Time scheduled tentatively at 1730
[2018-10-31] MEDS ORDERED: IODIXANOL LOCM 100 ML BTL ONE (17:22)
[2018-10-31] MEDS ORDERED: HEPARIN 1000 UNITS/NS (A-LINE) 1,000 ML ONE (17:22)
[2018-10-31] MEDS ORDERED: LIDOCAINE 1% (MDV) 20 ML INJ ONE (17:22)
[2018-10-31] MEDS ORDERED: FENTAnyl 50 MCG/ML VIAL ONE (17:22)
[2018-10-31] MEDS ORDERED: MIDAZOLAM 1 MG/ML 2 ML INJ ONE (17:22)
--- NOTE | 2018-10-31 18:10 | NUR ---
EOSS: Pt VSS, AOOx4, H&H stable at last check. Pt off unit at shift change for IR celiac mesenteric angiogram at laborer. Family and pt's questions were answered and needs met throughout shift. pt stable at time of transfer off unit. consent signed for procedure prior to transfer off unit as well. Will endorse to overnight caregiver
--- NOTE | 2018-10-31 19:25 | NUR ---
PACU: Received patient in pacu from Implementation Project Coordinator s/p angiogram of mesenteric AAOx4 vss HOB @ flat position breathing right groin dressing dry & intact no bleeding noted soft to touch, leg straight, denies pain, will continue to monitor.
--- NOTE | 2018-10-31 20:25 | NUR ---
PACU: Transferred patient back to the room via bed AAOx4 vss HOB @ flat position breathing right groin dressing dry & intact no bleeding noted soft to touch, leg straight, denies pain, Report given to JOHN Calhoun PACU time : 2024
[2018-11-01] VITALS (9 sets, daily range): BP systolic 115–156; BP diastolic 58–74; PULSE 74–91; RESP 16–20
[2018-11-01] MEDS: SOD CHLORIDE 0.9% 1,000 ML IV SCH ×2 (01:08→21:48)
[2018-11-01] MEDS: PANTOPRAZOLE 40 MG INJ IV SCH ×2 (05:27→17:10)
[2018-11-01] MEDS ORDERED: SOD CHLORIDE 0.9% 250 ML IV ONE (08:00)
--- NOTE | 2018-11-01 16:24 | NUR ---
Nutrition Notes: Current diet cl liquid, pt tolerating well. RD Recommendation 1. If medically feasible, advance diet w/in 48 hrs to solids, low fiber
--- NOTE | 2018-11-01 18:30 | NUR ---
EOSS Pt ao x 4 and stable at this time. Pt's at bedside and has a lot of questions. MD made rounds and answered Pt and 's question. Pt received 2 units PRBC today, tolerated well. Pt continues to have black tarry stool, MD aware. Pt tolerating clear liquid diet, no nausea or vomiting noted. All needs met, all questions answered. Pt and still waiting for Dr. Bella to come and see the Pt, Dr. Bella was paged twice to make aware and no call back. Hourly rounding provided. Call light within reach. Will endorse to next shift accordingly.
[2018-11-01] MEDS ORDERED: POLYETHYLENE GLYCOL 3350 119 GM POWDER PO ONE (20:00)
[2018-11-01] MEDS ORDERED: MAGNESIUM CITRATE 300 ML BTL PO ONE (20:00)
--- NOTE | 2018-11-01 20:28 | PN ---
Date/Time of Note Date/Time of Note DATE: 11/01/18 TIME: 20:19 Assessment/Plan Lines/Catheters IV Catheter Type (from [facility]): Peripheral IV Koch in Place (from [facility]): No Assessment/Plan Chief Complaint/Hosp Course 1. Melena with concern for GI bleed: Status post colonoscopy and endoscopy> pending report; CT angiogram noted -PPI, consider octreotide -no surgical tx at this time since no source identified at this time. consider repeat colonoscopy, double balloon enteroscopy, capsule endoscopy 2. Normocytic normochromic anemia: -Monitor and transfuse as needed 3. CAD with cardiac stent history -Cardiac optimization 4. Hypertension and hyperlipidemia history -Med management -Encourage weight loss 5. Hypothyroidism -Continue med management Thank you. Patient seen and examined in collaboration with Dr. Clark Khan. Subjective 24 Hr Interval Summary Feels well. HH downtrending. No fevers, chills, sob, congested cough, cp, palpitations, cruz, dizziness, n/v/d/dysuria. Exam/Review of Systems Vital Signs Vitals Vital Signs Date Temp Pulse Resp B/P (MAP) Pulse Ox O2 O2 Flow FiO2 Time Delivery Rate 11/01/18 90 20:00 11/01/18 98.2 20 124/72 94 Room Air 17:11 (89) Intake and Output 10/31/18 10/31/18 11/01/18 1515:00 23:00 07:00 IntakeIntake Total 1550 ml 500 ml BalanceBalance 1550 ml 500 ml Exam Free Text/Dictation Constitutional: alert, oriented, well developed Psych: nl mood/affect; No anxiety Head: normocephalic, atraumatic Eyes: nl conjunctiva, EOMI, nl lids, nl sclera ENMT: nl external ears & nose, nl lips & teeth, nl nasal mucosa & septum, mucosa pink and moist Neck: supple, non-tender Respiratory: normal air movement; No congested cough, No labored breathing Cardiovascular: regular rate and rhythm Gastrointestinal: soft, non-tender, distended (Moderate) Musculoskeletal: nl extremities to inspection Extremities: normal pulses Neurological: nl mental status, nl speech, nl strength Skin: nl turgor; No rash or lesions Results Result Diagram: 11/01/1852411/01/18524 CHAVO GONZALEZ [employer] REP Nov 01, 2018 20:28
--- NOTE | 2018-11-01 23:19 | PN ---
Date/Time of Note Date/Time of Note DATE: 11/01/18 TIME: 23:16 Assessment/Plan VTE Pro[place]axis [place] [facility]: 3 [place] [facility] No SCD contraindicated: low risk/ambulating Pharmacological prophylaxis: NA/contraindicated Pharm contraindication: bleeding Lines/Catheters IV [facility]ter Type (from [facility]): Peripheral IV Urinary Cath still in place: No Assessment/Plan Hospital Course Assessment and plan 1. Symptomatic GI bleed, mod stable, transfuse if hb ~ <8.0. 2. Acute GI bleed, mod stable, sp egd/ colon; sp gi scan [+rt lat abd], ct angio -ve though. rpt colonoscopy soon? 3. Chr CAD/PCI status. Unfortunately need to hold aspirin/ plavix due to #2. 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 Hypertension 5. Dyslipidemia 6. ESTEFANI 7. Diverticulosis; suspected assoc w gi bleed S: 10/30: Events noted. 10/31: Hb better, but still having melena and hematochezia. Received 2 units last night, and a total of 5 during his stay so far 11/01: melena, transfused. all questions answered O: Vss [place] No pallor Reg no m/r/g Clear Bs+ nt nd no RRG No edema Result Diagram: 11/01/1852411/01/18 05 Results 24hrs Laboratory Tests Test 11/01/18 02:13 11/01/18 05:25 11/01/18 08:18 Hemoglobin 7.6 L 7.7 L Hematocrit 23.3 L 23.1 L White Blood Count 10.0 # Red Blood Count 2.56 L Mean Corpuscular Volume 90.2 Mean Corpuscular Hemoglobin 30.1 Mean Corpuscular 33.3 Hemoglobin Concent Red Cell Distribution Width 15.9 H Platelet Count 108 L Mean Platelet Volume 10.7 H Immature Granulocytes % 3.900 H Neutrophils % 68.4 Lymphocytes % 9.7 L Monocytes % 14.3 H Eosinophils % 3.3 Basophils % 0.4 Nucleated Red Blood Cells % 0.9 H Immature Granulocytes # 0.390 H Neutrophils # 6.8 Lymphocytes # 1.0 Monocytes # 1.4 H Eosinophils # 0.3 Basophils # 0.0 Nucleated Red Blood Cells # 0.1 H Sodium Level 137 Potassium Level 3.6 Chloride Level 107 Carbon Dioxide Level 28 Anion Gap 2 L Blood Urea Nitrogen 15 Creatinine 0.67 Est Glomerular Filtrat Rate mL/min Glucose Level 89 Calcium Level 8.0 L Total Bilirubin 0.3 Direct Bilirubin 0.00 Indirect Bilirubin 0.3 Aspartate Amino 22 Transf (AST/SGOT) Alanine 27 Aminotransferase (ALT/SGPT) Alkaline Phosphatase 29 L Total Protein 3.8 L Albumin 2.1 L Globulin 1.70 Albumin/Globulin Ratio 1.23 Lab Scanned Report BLOOD TRANSFUSION Exam/Review of Systems Exam Vitals Vital Signs Date Temp Pulse Resp B/P (MAP) Pulse Ox O2 O2 Flow FiO2 Time Delivery Rate 11/01/18 98.8 79 20 156/74 97 20:00 (101) 11/01/18 Room Air 17:11 Intake and Output 10/31/18 10/31/18 11/01/18 1515:00 23:00 07:00 IntakeIntake Total 1550 ml 500 ml BalanceBalance 1550 ml 500 ml Results Results 24hrs Laboratory Tests Test 11/01/18 02:13 11/01/18 05:25 11/01/18 08:18 Hemoglobin 7.6 L 7.7 L Hematocrit 23.3 L 23.1 L White Blood Count 10.0 # Red Blood Count 2.56 L Mean Corpuscular Volume 90.2 Mean Corpuscular Hemoglobin 30.1 Mean Corpuscular 33.3 Hemoglobin Concent Red Cell Distribution Width 15.9 H Platelet Count 108 L Mean Platelet Volume 10.7 H Immature Granulocytes % 3.900 H Neutrophils % 68.4 Lymphocytes % 9.7 L Monocytes % 14.3 H Eosinophils % 3.3 Basophils % 0.4 Nucleated Red Blood Cells % 0.9 H Immature Granulocytes # 0.390 H Neutrophils # 6.8 Lymphocytes # 1.0 Monocytes # 1.4 H Eosinophils # 0.3 Basophils # 0.0 Nucleated Red Blood Cells # 0.1 H Sodium Level 137 Potassium Level 3.6 Chloride Level 107 Carbon Dioxide Level 28 Anion Gap 2 L Blood Urea Nitrogen 15 Creatinine 0.67 Est Glomerular Filtrat Rate mL/min Glucose Level 89 Calcium Level 8.0 L Total Bilirubin 0.3 Direct Bilirubin 0.00 Indirect Bilirubin 0.3 Aspartate Amino 22 Transf (AST/SGOT) Alanine 27 Aminotransferase (ALT/SGPT) Alkaline Phosphatase 29 L Total Protein 3.8 L Albumin 2.1 L Globulin 1.70 Albumin/Globulin Ratio 1.23 Lab Scanned Report BLOOD TRANSFUSION Medications Medication Current Medications Sodium Chloride 1,000 ml @ 80 mls/hr [id number] IV Last administered on 11/01/18at 21:48; Admin Dose 80 MLS/HR; Start 10/29/18 at 04:35 IV Flush (NS 3 ml) 3 ml PER PROTOCOL IV ; Start 10/29/18 at 05:00 Ondansetron HCl (Zofran Inj) 4 mg Q6H PRN IV NAUSEA/VOMITING; Start 10/29/18 at 05:00 Acetaminophen (Tylenol Tab) 650 mg Q6H PRN PO .PAIN 1-3 OR TEMP; Start 10/29/18 at 05:00 Morphine Sulfate (morphine) 2 mg Q4H PRN IV .SEVERE PAIN 7-10; Start 10/29/18 at 05:00 Pantoprazole (Protonix Iv) 40 mg BID@06,18 IV Last administered on 11/01/18at 17:10; Admin Dose 40 MG; Start 10/29/18 at 18:00 DELL OVALLE MD Nov 01, 2018 23:19
[2018-11-01] MEDS: D5W-0.45 NACL + KCL 20 MEQ 1,000 ML IV SCH (23:38)
[2018-11-02] VITALS (9 sets, daily range): BP systolic 98–144; BP diastolic 58–67; PULSE 69–96; RESP 16–21
[2018-11-02] MEDS: PANTOPRAZOLE 40 MG INJ IV SCH ×2 (04:53→17:31)
--- NOTE | 2018-11-02 07:30 | PN ---
DATE: 11/01/2018 HISTORY OF PRESENT ILLNESS: The patient was admitted with GI bleeding. Colonoscopy showed entire co aki filled with clots and diverticulosis. Because of that, the GI bleeding scan was performed which showed evidence of bleeding in the right side of the abdomen ____ therapeutic maneuver, angiogram was done and angiogram did not show any abnormality, no source of bleeding, ____ was noted indicating th at at this time we do not know the source of the bleeding. PHYSICAL EXAMINATION: VITAL SIGNS: Temperature 98.2, pulse is 74, blood pressure is 124/72. CARDIOVASCULAR: Normal heart sounds. RESPIRATORY: Normal breath sounds. ABDOMEN: Shows soft abdomen. LABORATORY DATA: The coagulation: Prothrombin time is 13. Hemoglobin 7.7, hematocrit is 23.1. CLINICAL IMPRESSION: Ongoing gastrointestinal bleeding. Source is not very clear. It is quite poss ible patient may be bleeding from the diverticulosis or perhaps small bowel bleeding. PLAN: At this time is to repeat a colonoscopy hoping colon will be clean to find out the source of t he bleeding and eventually we may have to consider capsule endoscopy and a small bowel enteroscopy or double balloon enteroscopy. The above plan was discussed with the patient's and family. They concur. Dictated By: GIO TRIPLETT MD NC/NTS Conf#: [id number] DID#: [id number] CC: BRIAN [place] MD; DELL OVALLE MD;*EndCC*
--- NOTE | 2018-11-02 10:53 | PN ---
Date/Time of Note Date/Time of Note DATE: 11/02/18 TIME: 10:50 Assessment/Plan Lines/Catheters IV [facility] Type (from [facility] Saline Lock Koch in Place (from [facility]): No Assessment/Plan Chief Complaint/Hosp Course 1. Melena with concern for GI bleed: Status post colonoscopy and endoscopy> no bleed identified; CT angiogram noted -PPI, consider octreotide -no surgical tx at this time since no source identified at this time. consider double balloon enteroscopy, capsule endoscopy if repeat colonoscopy does not identify bleed -repeat colonoscopy tomorrow 2. Normocytic normochromic anemia: -Monitor and transfuse as needed 3. CAD with cardiac stent history -Cardiac optimization 4. Hypertension and hyperlipidemia history -Med management -Encourage weight loss 5. Hypothyroidism -Continue med management Thank you. Patient seen and examined in collaboration with Dr. Clark Khan. Subjective 24 Hr Interval Summary Repeat colonoscopy pending. No fevers, chills, sob, congested cough, cp, palpitations, cruz, dizziness, n/v/d/dysuria. HH stable. Still with dark stool noted. Exam/Review of Systems Vital Signs Vitals Vital Signs Date Temp Pulse Resp B/P (MAP) Pulse Ox O2 O2 Flow FiO2 Time Delivery Rate 11/02/18 83 08:00 11/02/18 98.5 16 122/59 95 07:44 (80) 11/01/18 Room Air 17:11 Intake and Output 11/01/18 11/01/18 11/02/18 1515:00 23:00 07:00 IntakeIntake Total 1150 ml 500 ml BalanceBalance 1150 ml 500 ml Exam Free Text/Dictation Constitutional: alert, oriented, well developed Psych: nl mood/affect; No anxiety Head: normocephalic, atraumatic Eyes: nl conjunctiva, EOMI, nl lids, nl sclera ENMT: nl external ears & nose, nl lips & teeth, nl nasal mucosa & septum, muc efrain pink and moist Neck: supple, non-tender Respiratory: normal air movement; No congested cough, No labored breathing Cardiovascular: regular rate and rhythm Gastrointestinal: soft, non-tender, distended (Moderate) Musculoskeletal: nl extremities to inspection Extremities: normal pulses Neurological: nl mental status, nl speech, nl strength Skin: nl turgor; No rash or lesions Results Result Diagram: 2/14/19 0536 11/02/18 0536 CHAVO GONZALEZ NP Nov 02, 2018 10:53
[2018-11-02] MEDS: D5W-0.45 NACL + KCL 20 MEQ 1,000 ML IV SCH (13:18)
--- NOTE | 2018-11-02 18:14 | NUR ---
EOSS Pt ao x 4 and stable at this time. No bleeding noted in Pt's bowel movement and noted it to be liquid brown to clear color. Pt's at bedside and was updated regarding plan of care per Pt's request. Dr. Bella came and s/w Pt and regarding tomorrow colonoscopy procedure. Pt signed consent and filled on chart. Will continue bowel prep tonight and endorse to keep Pt NPO post MN. Room kept clean and clutter free. Hourly rounding provided. Call light within reach. Will endorse to next shift accordingly.
[2018-11-02] MEDS ORDERED: POLYETHYLENE GLYCOL 3350 119 GM POWDER PO ONE ×2 (20:00→20:30)
--- NOTE | 2018-11-02 23:36 | PN ---
Date/Time of Note Date/Time of Note DATE: 11/02/18 TIME: 23:35 Assessment/Plan VTE Prophylaxis Risk score (from [facility]0 risk: 3 SCD applied (from [facility]): No SCD contraindicated: low risk/ambulating Pharmacological prophylaxis: NA/contraindicated Pharm contraindication: bleeding Lines/Catheters IV Catheter Type (from [facility]): Saline Lock Urinary Cath still in place: No Assessment/Plan Hospital Course Assessment and plan 1. Symptomatic GI bleed, mod stable, transfuse if hb ~ <8.0. 2. Acute GI bleed, mod stable, sp egd/ colon; sp gi scan [+rt lat abd], ct angio -ve though. rpt colonoscopy in am 3. Chr CAD/PCI status. Unfortunately need to hold aspirin/ plavix due to #2. 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 Hypertension 5. Dyslipidemia 6. ESTEFANI 7. Diverticulosis; suspected assoc w gi bleed S: 10/30: Events noted. 10/31: Hb better, but still having melena and hematochezia. Received 2 units last night, and a total of 5 during his stay so far 11/01: melena, transfused. all questions answered 11/02: less active bleeding. no dyspnea/ fever/ chest pain O: Vss [place] No pallor Reg no m/r/g Clear Bs+ nt nd no RRG No edema Result Diagram: 11/02/18 0536 11/02/18 0536 Results 24hrs Laboratory Tests Test 11/02/18 05:36 11/02/18 07:29 White Blood Count 8.9 Red Blood Count 3.22 #L Hemoglobin 9.6 #L Hematocrit 29.2 #L Mean Corpuscular Volume 90.7 Mean Corpuscular Hemoglobin 29.8 Mean Corpuscular Hemoglobin Concent 32.9 Red Cell Distribution Width 16.4 H Platelet Count 114 L Mean Platelet Volume 10.4 Immature Granulocytes % 5.500 H Neutrophils % Segmented Neutrophils % (Manual) 67 Band Neutrophils % (Manual) 1 Lymphocytes % Lymphocytes % (Manual) 15 Monocytes % Monocytes % (Manual) 8 Eosinophils % Eosinophils % (Manual) 6 Basophils % Basophils % (Manual) 1 Metamyelocytes % (manual) 2 H Nucleated Red Blood Cells % 1 H Immature Granulocytes # 0.490 H Neutrophils # Neutrophils # (Manual) 6.0 Band Neutrophils # 0.0 Lymphocytes (Manual) 1.3 Lymphocytes # Monocytes # Monocytes # (Manual) 0.7 Eosinophils # Basophils # Basophils # (Manual) 0.0 Metamyelocytes # 0.1 H Nucleated Red Blood Cells # Platelet Estimate DECREASED Polychromasia 1+ Anisocytosis 1+ Microcytosis 1+ Macrocytosis 1+ Prothrombin Time 13.2 Prothrombin Time Ratio 1.0 INR International Normalized Ratio 0.99 Sodium Level 138 Potassium Level 4.0 Chloride Level 103 Carbon Dioxide Level 31 Anion Gap 4 L Blood Urea Nitrogen 10 Creatinine 0.78 Est Glomerular Filtrat Rate mL/min Glucose Level 117 Calcium Level 8.3 L Phosphorus Level 2.1 L Magnesium Level 2.2 Total Bilirubin 0.4 Direct Bilirubin 0.00 Indirect Bilirubin 0.4 Aspartate Amino Transf (AST/SGOT) 27 Alanine Aminotransferase (ALT/SGPT) 27 Alkaline Phosphatase 33 L Total Protein 4.6 L Albumin 2.5 L Globulin 2.10 Albumin/Globulin Ratio 1.19 Lab Scanned Report BLOOD TRANSFUSION Exam/Review of Systems Exam Vitals Vital Signs Date Temp Pulse Resp B/P (MAP) Pulse Ox O2 O2 Flow FiO2 Time Delivery Rate 11/02/18 88 20:02 11/02/18 97.6 18 122/58 98 19:51 (79) 11/01/18 Room Air 17:11 Intake and Output 11/01/18 11/01/18 11/02/18 1515:00 23:00 07:00 IntakeIntake Total 1150 ml 500 ml BalanceBalance 1150 ml 500 ml Results Results 24hrs Laboratory Tests Test 11/02/18 05:36 11/02/18 07:29 White Blood Count 8.9 Red Blood Count 3.22 #L Hemoglobin 9.6 #L Hematocrit 29.2 #L Mean Corpuscular Volume 90.7 Mean Corpuscular Hemoglobin 29.8 Mean Corpuscular Hemoglobin Concent 32.9 Red Cell Distribution Width 16.4 H Platelet Count 114 L Mean Platelet Volume 10.4 Immature Granulocytes % 5.500 H Neutrophils % Segmented Neutrophils % (Manual) 67 Band Neutrophils % (Manual) 1 Lymphocytes % Lymphocytes % (Manual) 15 Monocytes % Monocytes % (Manual) 8 Eosinophils % Eosinophils % (Manual) 6 Basophils % Basophils % (Manual) 1 Metamyelocytes % (manual) 2 H Nucleated Red Blood Cells % 1 H Immature Granulocytes # 0.490 H Neutrophils # Neutrophils # (Manual) 6.0 Band Neutrophils # 0.0 Lymphocytes (Manual) 1.3 Lymphocytes # Monocytes # Monocytes # (Manual) 0.7 Eosinophils # Basophils # Basophils # (Manual) 0.0 Metamyelocytes # 0.1 H Nucleated Red Blood Cells # Platelet Estimate DECREASED Polychromasia 1+ Anisocytosis 1+ Microcytosis 1+ Macrocytosis 1+ Prothrombin Time 13.2 Prothrombin Time Ratio 1.0 INR International Normalized Ratio 0.99 Sodium Level 138 Potassium Level 4.0 Chloride Level 103 Carbon Dioxide Level 31 Anion Gap 4 L Blood Urea Nitrogen 10 Creatinine 0.78 Est Glomerular Filtrat Rate mL/min Glucose Level 117 Calcium Level 8.3 L Phosphorus Level 2.1 L Magnesium Level 2.2 Total Bilirubin 0.4 Direct Bilirubin 0.00 Indirect Bilirubin 0.4 Aspartate Amino Transf (AST/SGOT) 27 Alanine Aminotransferase (ALT/SGPT) 27 Alkaline Phosphatase 33 L Total Protein 4.6 L Albumin 2.5 L Globulin 2.10 Albumin/Globulin Ratio 1.19 Lab Scanned Report BLOOD TRANSFUSION Medications Medication Current Medications IV Flush (NS 3 ml) 3 ml PER PROTOCOL IV ; Start 10/29/18 at 05:00 Ondansetron HCl (Zofran Inj) 4 mg Q6H PRN IV NAUSEA/VOMITING; Start 10/29/18 at 05:00 Acetaminophen (Tylenol Tab) 650 mg Q6H PRN PO .PAIN 1-3 OR TEMP; Start 10/29/18 at 05:00 Morphine Sulfate (morphine) 2 mg Q4H PRN IV .SEVERE PAIN 7-10; Start 10/29/18 at 05:00 Pantoprazole (Protonix Iv) 40 mg BID@06,18 IV Last administered on 11/02/18at 17:31; Admin Dose 40 MG; Start 10/29/18 at 18:00 Potassium Chloride/Dextrose/ Sod Cl 1,000 ml @ 70 mls/hr [id number] IV Last admi nistered on 11/01/18at 23:38; Admin Dose 70 MLS/HR; Start 11/01/18 at 23:30 DELL OVALLE MD Nov 02, 2018 23:36
[2018-11-03] VITALS (26 sets, daily range): BP systolic 78–165; BP diastolic 40–79; PULSE 54–95; RESP 13–23
[2018-11-03] MEDS: D5W-0.45 NACL + KCL 20 MEQ 1,000 ML IV SCH ×2 (04:06→11:16)
[2018-11-03] MEDS: PANTOPRAZOLE 40 MG INJ IV SCH (05:21)
--- NOTE | 2018-11-03 06:34 | PN ---
DATE: 11/02/2018 SUBJECTIVE: The patient was admitted with GI bleeding. Upper endoscopy showed superficial ulcers, g astritis of the stomach. Colonoscopy showed blood all over the colon from the anus all the way to th e cecum. GI bleeding scan showed possible bleeding in the right side of the. CT angiogram did not s how any source of bleeding. Arterial angiogram was performed which did not show any abnormalities. CLINICAL IMPRESSION: At this time, the patient is having brown stools. It appears like bleeding is under control, but this seems to be the right time to do colonoscopy to rule out any other process ot her than the diverticulosis, so the patient agreed and the patient will have a colonoscopy tomorrow. Dictated By: GIO TRIPLETT MD NC/NTS Conf#: [id number] DID#: [id number] CC: DELL OVALLE MD; JOE LIRA MD; BRIAN NJ MD;*EndCC*
--- NOTE | 2018-11-03 08:18 | NUR ---
EOSS: Patient resting comfortably in stable condition. Pt a/o X4 and on room air. VS stable. Tap water enema given once. NPO since midnight. Will endorse to oncoming RN.
--- NOTE | 2018-11-03 08:39 | PN ---
Date/Time of Note Date/Time of Note DATE: 11/03/18 TIME: 08:37 Assessment/Plan Lines/Catheters IV Catheter Type (from [facility]): Saline Lock Koch in Place (from [facility]): No Assessment/Plan Chief Complaint/Hosp Course 1. Melena with concern for GI bleed: Status post colonoscopy and endoscopy> no bleed identified; CT angiogram noted -PPI, consider octreotide -no surgical tx at this time since no source identified at this time. consider double balloon enteroscopy, capsule endoscopy if repeat colonoscopy does not identify bleed -repeat colonoscopy today 2. Normocytic normochromic anemia: hh stable -Monitor and transfuse as needed 3. CAD with cardiac stent history -Cardiac optimization 4. Hypertension and hyperlipidemia history -Med management -Encourage weight loss 5. Hypothyroidism -Continue med management Thank you. Patient seen and examined in collaboration with Dr. Clark Khan. Subjective 24 Hr Interval Summary Pending colonoscopy today. HH stable. No melena/hematochezia. No fevers, chills, sob, congested cough, cp, palpitations, cruz, dizziness, n/v/d/dysuria. Exam/Review of Systems Vital Signs Vitals Vital Signs Date Temp Pulse Resp B/P (MAP) Pulse Ox O2 O2 Flow FiO2 Time Delivery Rate 11/03/18 87 08:31 11/03/18 98.3 20 109/60 97 07:09 (76) 11/01/18 Room Air 17:11 Intake and Output 11/02/18 11/02/18 11/03/18 1515:00 23:00 07:00 IntakeIntake Total 650 ml 1270 ml BalanceBalance 650 ml 1270 ml Exam Free Text/Dictation Constitutional: alert, oriented, well developed Psych: anxiety Head: normocephalic, atraumatic Eyes: nl conjunctiva, EOMI, nl lids, nl sclera ENMT: nl external ears & nose, nl lips & teeth, nl nasal mucosa & septum, mucosa pink and moist Neck: supple, non-tender Respiratory: normal air movement; No congested cough, No labored breathing Cardiovascular: regular rate and rhythm Gastrointestinal: soft, non-tender, distended (min) Musculoskeletal: nl extremities to inspection Extremities: normal pulses Neurological: nl mental status, nl speech, nl strength Skin: nl turgor; No rash or lesions Results Result Diagram: 11/03/18 0753 11/02/18 0536 CHAVO GONZALEZ NP Nov 03, 2018 08:39
--- NOTE | 2018-11-03 12:09 | PREAC ---
Date/Time of Note Date/Time of Note DATE: 11/03/18 TIME: 12:08 Anesthesia Eval and Record Evaluation Time Pre-Procedure Interview DATE: 11/03/18 TIME: 12:08 Age 78 Sex male NPO: 8 hrs Preoperative diagnosis melena, GI bleed Planned procedure colonoscopy Past Medical History Past Medical History: Includes Cardio: HTN, Dyslipidemia, CAD, PTCA/Stent Endo: Hypothyroid Pulm: Sleep Apnea Surgery & Anesthesia Issues No known issue Meds Anticoagulation: No Beta Eulogio within 24 hr: No Reason Beta Eulogio not given: Pt. not on B-Eulogio Reported Medications Levothyroxine Sodium* (Synthroid*) 25 Mcg Tablet, 0.15 MG PO BEFORE BREAKFAST, #30 TAB 10/29/18 [place]-3 Fatty Acids/Fish Oil (Fish Oil 1,000 mg Capsule) 1 Each Capsule, 1 EACH PO DAILY, CAP 10/29/18 Rosuvastatin Calcium (Rosuvastatin Calcium) 10 Mg Tablet, 10 MG PO DAILY, TAB 10/29/18 Candesartan Cilexetil (Candesartan Cilexetil) 4 Mg Tablet, 4 MG PO DAILY, TAB 10/29/18 Aspirin Ec (Aspir 81) 81 Mg Tablet.dr, 81 MG PO DAILY, #30 TAB 10/29/18 Current Medications IV Flush (NS 3 ml) 3 ml PER PROTOCOL IV ; Start 10/29/18 at 05:00 Ondansetron HCl (Zofran Inj) 4 mg Q6H PRN IV NAUSEA/VOMITING; Start 10/29/18 at 05:00 Acetaminophen (Tylenol Tab) 650 mg Q6H PRN PO .PAIN 1-3 OR TEMP; Start 10/29/18 at 05:00 Morphine Sulfate (morphine) 2 mg Q4H PRN IV .SEVERE PAIN 7-10; Start 10/29/18 at 05:00 Pantoprazole (Protonix Iv) 40 mg BID@06,18 IV Last administered on 11/03/18at 05:21; Admin Dose 40 MG; Start 10/29/18 at 18:00 Potassium Chloride/Dextrose/ Sod Cl 1,000 ml @ 70 mls/hr [id number] IV Last administered on 11/03/18at 11:16; Admin Dose 70 MLS/HR; Start 11/01/18 at 23:30 Meds reviewed: Yes Allergies Coded Allergies: No Known Allergy (Unverified , 2/10/19) Allergies Reviewed: Yes Labs/Studies Labs Reviewed: Reviewed by anesthesiologist Result Diagram: 11/03/18 0753 11/03/18 0753 Laboratory Tests 11/03/18 07:53 test: N/A Pre-procedure Exam Last vitals Vital Signs Date Temp Pulse Resp B/P (MAP) Pulse Ox O2 O2 Flow FiO2 Time Delivery Rate 11/03/18 84 12:02 11/03/18 97.3 20 165/79 99 Room Air 11:59 (107) Airway: Adequate mouth opening, Adequate thyromental dist Mallampati: Mallampati II Teeth: Normal Lung: Normal Heart: Normal ASA Physical Status ASA physical status: 3 Emergency: None Planned Anesthetic General/MAC: Mask Planned Pain Management Parenteral pain med Pre-operative Attestations Prior to commencing anesthesia and surgery, the patient was re-evaluated, there was verification of: *The patient's identity *The results of appropriate recent lab work and preoperative vital signs *The above evaluation not changing prior to induction *Anesthetic plan, risk benefits, alternative and complications discussed with patient/family; questions answered; patient/family understands, accepts and wishes to proceed. HARMEET CARDENAS MD Nov 03, 2018 12:09
[2018-11-03] MEDS ORDERED: LIDOCAINE 2% (SDV) 5 ML INJ ONE (12:10)
[2018-11-03] MEDS ORDERED: PROPOFOL 20 ML ONE (12:10)
[2018-11-03] MEDS ORDERED: EPHEDrine 25 MG/5 ML SYG ONE (12:49)
--- NOTE | 2018-11-03 12:52 | PAC ---
Date/Time of Note Date/Time of Note DATE: 11/03/18 TIME: 12:52 Post-Anesthesia Notes Post-Anesthesia Note Last documented vital signs Vital Signs Date Temp Pulse Resp B/P (MAP) Pulse Ox O2 O2 Flow FiO2 Time Delivery Rate 11/03/18 84 12:02 11/03/18 97.3 20 165/79 99 Room Air 11:59 (107) Activity: WNL Respiratory function: WNL Cardiovascular function: WNL Mental status: Baseline Pain reasonably controlled: Yes Hydration appropriate: Yes Nausea/Vomiting absent: Yes Comments BP: 99/58 HR: 65 RR: 15 T: 98 Sao2: 100% HARMEET CARDENAS MD Nov 03, 2018 12:52
[2018-11-03] MEDS ORDERED: ONDANSETRON 4 MG INJ IV PRN (13:00)
[2018-11-03] MEDS ORDERED: EPHEDrine SULFATE 50 MG/5 ML SYG IV PRN (13:00)
--- NOTE | 2018-11-03 16:02 | PDOCDIS ---
Discharge Instructions CONDITION [id number] Patient Condition: Owaqx0h Stable HOME CARE INSTRUCTIONS: Dnkpz0Pa Diet Instructions: Wqnem0i Low Fat /Cholesterol Fzejm3Bf Special Diet: Fzwvp7k no nuts or seeds ACTIVITY: [id number] Activity Restrictions: [id number] Slowly Increase Activity FOLLOW UP/APPOINTMENTS Follow-up Plan PCP 1wk Dr Bella 2wks Regular Cardiology 2-3wks DELL OVALLE MD Nov 03, 2018 16:02
[2018-11-03] MEDS ORDERED: PANT20TA2 PO (16:03)
--- NOTE | 2018-11-03 16:05 | PDOCDIS ---
Discharge Instructions CONDITION [id number] Patient Condition: Vwger0t Stable HOME CARE INSTRUCTIONS: [id number] Diet Instructions: Jhtfn4y Low Fat /Cholesterol Wxgbw0Jx Special Diet: Ydamc7d no nuts or seeds ACTIVITY: Ynzmi9Ey Activity Restrictions: Tjzxs4i Slowly Increase Activity Rest between Activity Avoid heavy lifting Do not Drive Do not operate Machinery FOLLOW UP/APPOINTMENTS Follow-up Plan PCP 1wk Dr Bella 2wks Regular Cardiology 2-3wks OTHER ORDERS: Other Orders: hold non essential meds (synthroid/ fish oil/ vitamins) till Tuesday. No aspirin/ plavix for 1week. SCHOOL/WORK RELEASE May return to School/Work on: Nov 03, 2018 DELL OVALLE MD Nov 03, 2018 16:05
--- NOTE | 2018-11-03 16:38 | DS ---
Date/Time of Note Date/Time of Note DATE: 11/03/18 TIME: 16:28 Discharge Summary Admission/Discharge Info Admit Date/Time Oct 29, 2018 at 03:25 Discharge Date/Time Patient Condition: Stable Consults Dr Jena Khan IR Procedures CT abdomen pelvis IMPRESSION: 1. Punctate nonobstructing right upper pole renal calculus. 2. Right lower pole renal cortical cyst. 3. Diffuse flaccidity of the ventral abdominal wall without evidence for hernia. 4. Extensive colonic diverticulosis. 5. No CT evidence for appendicitis. 6. Mildly enlarged heterogeneous prostate. 7. Vascular calcifications. GI bleeding scan FINDINGS: There are normal vascular structures. No active gastrointestinal bleeding is identified. IMPRESSION: Unremarkable examination. Follow-up examination can be performed if clinically warranted. AMENDMENT: 10/31/2018 9:15:30 AM Hayde Ford Md Multiple delayed images of the abdomen were obtained at 10 hours post injection, which demonstrate numerous new abnormal areas of increased activity conforming to the loops of the small and large bowel predominantly located in the right lateral abdomen. The findings are consistent with scintigraphically detectable gastrointestinal bleeding. The origin of the bleeding cannot be determined based on the delayed images. CT Angiogram ABD/ PEL IMPRESSION: 1. CT angiogram demonstrates no active bleeding, extravasation, hypervascular mass, or obvious arteriovenous malformation within the bowel. 2. No hemodynamically significant stenosis of the mesenteric vessels. 3. No prominent varices seen to suggest variceal bleeding. 4. Mild thickening of the gastroesophageal junction. Question esophagogastritis 5. Extensive colonic and sigmoid diverticulosis without acute diverticulitis. 6. Normal appendix and terminal ileum. 7. No intraperitoneal free fluid, free air, abscess. 8. No abnormal bowel wall thickening 9. Prostatomegaly. Recommend correlation with PSA. 10. Small bilateral pleural effusions Gastric biopsy: -- Chronic gastritis, mild and patchy, involving body mucosa. -- No Helicobacter organisms are identified in a Giemsa stain (positive control concurrently reviewed). -- There is no evidence of malignancy. MP/REJI/tm/mt Date of Service: 10/30/18; Date Received: 10/30/18 Dictated: 10/31/18; Tra Hx of Present Illness 78-year-old gentleman admitted with GI bleed symptomatic anemia dizziness Hospital Course Hospital course admitted and evaluated for symptomatic anemia GI bleed. Seen by GI. Initial colonoscopy and EGD were unremarkable for the cause of his GI bleed. Colonoscopy was full of blood and 4 we had a poor evaluation. Due to active bleed patient was seen by general surgery additionally. We next entertain the possibility of small bowel bleed. GI bleeding scan concerning for right-sided bleed. Angiogram unfortunately/ or fortunately did not show any active bleed. Patient was monitored here over the next 48 hours. He did receive about 6 units of blood during his hospital stay. Over the next 48 h ours, his hemoglobin stabilized. Although he did require transfusion. This afternoon patient had a colonoscopy which did not show any active bleed. It is presently thought, that this patient has a diverticular associated bleed. Presently not active, stable and fit for discharge. He is asked to follow-up with GI next week. He is asked to discontinue aspirin for 1 week. He was informed of the risk of coronary issues while off aspirin but there are no alternatives at this time. Presently stable and fit for discharge. Gave him a note to check hemoglobin this next Tuesday and forward to primary/GI Assessment and plan 1. Symptomatic GI bleed, stable, discharge. today Hb/hct=10/32 2. Acute GI bleed, stable, sp egd/ colon; sp gi scan [+rt lat abd], ct angio - ve though. rpt colonoscopy done today 3. Chr CAD/PCI status. Unfortunately need to hold aspirin/ plavix due to #2. 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 Hypertension 5. Dyslipidemia 6. ESTEFANI 7. Diverticulosis; suspected assoc w gi bleed S: 10/30: Events noted. 10/31: Hb better, but still having melena and hematochezia. Received 2 units last night, and a total of 5 during his stay so far 11/01: melena, transfused. all questions answered 11/02: less active bleeding. no dyspnea/ fever/ chest pain 11/03: No active bleed. No chest pain dyspnea. additionally updated. All questions answered. Home Meds Active Scripts Pantoprazole* (Protonix*) 20 Mg Tablet., 20 MG PO DAILY for 10 Days, TAB Prov:DELL OVALLE MD 11/03/18 Reported Medications Rosuvastatin Calcium (Rosuvastatin Calcium) 10 Mg Tablet, 10 MG PO DAILY, TAB 10/29/18 Candesartan Cilexetil (Candesartan Cilexetil) 4 Mg Tablet, 4 MG PO DAILY, TAB 10/29/18 Discontinued Reported Medications Levothyroxine Sodium* (Synthroid*) 25 Mcg Tablet, 0.15 MG PO BEFORE BREAKFAST, #30 TAB 10/29/18 [place]-3 Fatty Acids/Fish Oil (Fish Oil 1,000 mg Capsule) 1 Each Capsule, 1 EACH PO DAILY, CAP 10/29/18 Aspirin Ec (Aspir 81) 81 Mg Tablet., 81 MG PO DAILY, #30 TAB 10/29/18 Follow-up Plan PCP 1wk Dr Bella 2wks Regular Cardiology 2-3wks Primary Care Provider Not On Staff Doctor Time spent on discharge: > 30 minutes Pending Labs Laboratory Tests Test 11/03/18 05:43 11/03/18 07:53 Lab Scanned Report BLOOD TRANSFUSION White Blood Count 7.4 10^3/ul (4.8-10.8) Red Blood Count 3.55 10^6/ul (4.70-6.10) Hemoglobin 10.5 g/dl (14.0-18.0) Hematocrit 32.8 % (42.0-52.0) Mean Corpuscular Volume 92.4 fl (82.0-101.0) Mean Corpuscular Hemoglobin 29.6 pg (29.0-33.0) Mean Corpuscular 32.0 g/dl (32.0-37.0) Hemoglobin Concent Red Cell Distribution Width 17.0 % (11.5-14.5) Platelet Count 132 10^3/UL (140-415) Mean Platelet Volume 10.5 fl (7.4-10.4) Immature Granulocytes % 3.100 % (0.001-0.429) Neutrophils % 65.8 % (39.0-77.0) Lymphocytes % 13.7 % (15.0-51.0) Monocytes % 12.4 % (0.0-11.0) Eosinophils % 4.6 % (0.0-7.0) Basophils % 0.4 % (0.0-2.0) Nucleated Red Blood Cells % 0.0 /100WBC (0.0-0.0) Immature Granulocytes # 0.230 10^3/ul (0.0-0.031) Neutrophils # 4.9 10^3/ul (1.6-7.5) Lymphocytes # 1.0 10^3/ul (0.8-2.9) Monocytes # 0.9 10^3/ul (0.3-0.9) Eosinophils # 0.3 10^3/ul (0.0-0.5) Basophils # 0.0 10^3/ul (0.0-0.1) Nucleated Red Blood Cells # 0.0 10^3/ul (0.0-0.0) Sodium Level 137 mmol/L (135-144) Potassium Level 3.3 mmol/L (3.5-5.1) Chloride Level 104 mmol/L (97-110) Carbon Dioxide Level 31 mmol/L (21-31) Anion Gap 2 (5-13) Blood Urea Nitrogen 7 mg/dl (7-20) Creatinine 0.79 mg/dl (0.61-1.24) Est Glomerular Filtrat Rate mL/min mL/min (>60) Glucose Level 101 mg/dl (70-220) Calcium Level 8.6 mg/dl (8.4-10.2) EDLL OVALLE MD Nov 03, 2018 16:38
--- NOTE | 2018-11-03 17:47 | NUR ---
Discharge Pt ao x 4 and stable for discharge to home. Pt's at bedside. Discharge packet and new prescriptions given to the Pt. Education provided regarding discharge instructions and new medication. Pt stated understanding. All questions answered. All needs met. monitoring tech d/c'd. IV d/c'd. All belongings returned to the Pt. Pt escorted via wheelchair for d/c.
== END 2018-11-03 18:00 | disposition home or self-care (01) | DRG 378 ==
LOC: E/R 00:35 → 2NE 03:25 → TEL 10-30 21:17
PROVIDERS: ADMIT Family Medicine; ATTEND Internal Medicine
PROC: 30233N1 Transfusion of Nonautologous Red Blood Cells into Peripheral Vein, Percutaneous Approach (ICD-10-PCS; 2018-10-29)
PROC: 0DJD8ZZ Inspection of Lower Intestinal Tract, Via Natural or Artificial Opening Endoscopic (ICD-10-PCS; principal; 2018-10-30 17:30)
PROC: 0DB68ZX Excision of Stomach, Via Natural or Artificial Opening Endoscopic, Diagnostic (ICD-10-PCS; 2018-10-30 17:30)
PROC: 0DJD8ZZ Inspection of Lower Intestinal Tract, Via Natural or Artificial Opening Endoscopic (ICD-10-PCS; 2018-11-03)
DX: K57.31 Diverticulosis of large intestine without perforation or abscess with bleeding (principal); D62 Acute posthemorrhagic anemia; K29.70 Gastritis, unspecified, without bleeding; K25.3 Acute gastric ulcer without hemorrhage or perforation; I25.10 Atherosclerotic heart disease of native coronary artery without angina pectoris; G47.33 Obstructive sleep apnea (adult) (pediatric); E78.5 Hyperlipidemia, unspecified; I10 Essential (primary) hypertension; E03.9 Hypothyroidism, unspecified; E86.0 Dehydration; K64.1 Second degree hemorrhoids; Z95.5 Presence of coronary angioplasty implant and graft
CPT/HCPCS: 36415; 36430; 71045; 74176; 75635; 78278; 80048; 80053; 80061; 81003; 83036; 83690; 83735; 84100; 84443; 84484; 85014; 85018; 85025; 85610; 85730; 86850; 86900; 86901; 86920; 88305; 88312; 93005; 96374; A9560; C9113; J1644; J2250; J3010; J3480; J7030; J7040; P9016; Q9967